=== PATIENT | male | born 1940 | race Caucasian/White ===

== ENCOUNTER 2024-07-18 10:47 | Outpatient (CLI) | payer MEDICARE, OTHER, SELFPAY ==
--- NOTE | ~2024-07-18 | XR_ITS ---
Supine and upright views of the abdomen Clinical history: Kidney stone Findings: Bowel gas pattern is nonspecific. No evidence for obstruction or free air. Multiple right-s ided kidney stones are present, largest measuring 1 cm in diameter. There are multiple left-sided kid herb stones, largest measuring 5 mm.. Osseous structures are intact. Impression: Multiple bilateral renal stones, as detailed above. Reviewed, dictated and finalized at location . Impression: Multiple bilateral renal stones, as detailed above.
--- OUTSIDE RECORDS SUMMARY | 2024-07-18 12:35 | XMS_ITS | Referral Summary ---
Author Organization [facility] [address] [place] [address] Care Team Providers Care [facility] Associate Professor Name Role Phone Gena Powers Primary Care Provider + Allergies No known active allergies Medications butalbital-acet aminophen-caffe ine (ESGIC) 50-325-40 mg per tablet Take 1-2 tabs every 8 hours PRN for headache 0 Active azelastine (ASTELIN) 137 mcg (0.1 %) nasal spray Administer 1 spray into affected nostril(s) 2 (two) times a day 9 Active docosahexaenoic acid-epa 120-180 mg capsule Take by mouth Active fluticasone propionate (FLONASE) 50 mcg/actuation nasal spray 0 Active hydroCHLOROthia zide (HYDRODIURIL) 25 mg tablet 0 Active lisinopriL (PRINIVIL,ZESTR IL) 10 mg tablet 0 Active loratadine (CLARITIN) 10 mg tablet Take 10 mg by mouth daily 9 Active meloxicam (MOBIC) 7.5 mg tablet Take 7.5 mg by mouth daily 0 Active metFORMIN XR (GLUCOPHAGE XR) 500 mg 24 hr tablet 0 Active potassium chloride ER (potassium chloride ER) 10 mEq CR tablet Take 10 mEq by mouth daily 0 Active simvastatin (ZOCOR) 20 mg tablet 0 Active tiZANidine (ZANAFLEX) 2 mg tablet 0 Active traMADoL (ULTRAM) 50 mg tablet TAKE ONE TO TWO TABLETS EVERY SIX HOURS NEEDED FOR PAIN 0 Active ipratropium (ATROVENT) 42 mcg (0.06 %) nasal sprayIndication s:Post-nasal drip Administer 2 sprays into each nostril 4 (four) times a day 15 mL 3 0 Active Active Problems Problem Noted Date Diagnosed Date Sensorineural hearing loss (SNHL) of both ears 0 08/11/2020 Post-nasal drip 02/09/2020 Deviated nasal septum 12/19/2019 Hypertrophy of both inferior nasal turbinates Nasal valve 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/19/2019 Social History Tobacco Use Types Packs/Day Years Used Date Smoking Tobacco: Former Smokeless Tobacco: Never Personal Safety Answer Date Recorded Getting School Help Needed Not on file 07/04 Sex and Gender Information Value Date Recorded Sex Assigned at Not on file Legal Sex Male 3:45 PM [employer] Gender Identity Not on file Sexual Orientation Not on file Last Filed Vital Signs Vital Sign Reading Time Taken Comments Blood Pressure 138/82 01/04/2020 7:52 AM CDT Pulse 69 01/04/2020 7:52 AM CDT Temperature 36.9 C (98.4 F) 07/11/2020 3:02 PM CDT Respiratory Rate - - Oxygen Saturation 98% 01/04/2020 7:52 AM CDT Inhaled Oxygen Concentration - - Weight 81.6 kg (180 lb) 08/09/2020 9:11 AM CDT Height 182.9 cm (6') 08/09/2020 9:11 AM CDT Body Mass Index 24.41 08/09/2020 9:11 AM CDT Plan of Treatment Not on file Insurance MEDICARE FOR LIFE MEDICARE FOR LIFE Care Teams [facility] Associate Professor Relationship Specialty Start Date End Date Gena Powers PA [address] [place] [id number] PCP - General Nurse Practitioner 12/12/19
--- OUTSIDE RECORDS SUMMARY | 2024-07-18 12:35 | XMS_ITS | Clinical Summary ---
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 Active Multiple Vitamins-Minerals (ICAPS AREDS 2 OR) Take 1 tablet by mouth daily. Active Acetaminophen (TYLENOL ARTHRITIS PAIN OR) Take by mouth daily. Active CYSTEAMINE HCL OP Eye drops Ac tive fluticasone propionate (FLONASE) 50 MCG/ACT nasal sprayIndications: Seasonal allergic rhinitis, unspecified trigger 2 sprays by Each Nostril route daily. 48 g 6 4 Active hydroCHLOROthiazi de (HYDRODIURIL) 25 MG tabletIndications :Essential hypertension take 1 tablet by mouth daily. 90 tablet 2 4 Active calcium-vitamin D (OSCAL) 250-3.125 MG-MCG tablet Take 1 tablet by mouth daily. Active Cholecalciferol (VITAMIN D-3 OR) Act sarahi lisinopril (PRINIVIL) 10 MG tabletIndications :Essential hypertension Take 1 tablet (10 mg total) by mouth daily. 90 tablet 1 4 Active simvastatin (ZOCOR) 20 MG tabletIndications :Hypercholesterol emia Take 1 tablet (20 mg total) by mouth nightly at bedtime. at bedtime 90 tablet 3 4 Active metFORMIN ER (GLUCOPHAGE-XR) 500 MG 24 hr tabletIndications :Type 2 diabetes mellitus with hyperglycemia, without long-term current use of insulin ([facility]/HCC HHS/HCC) TAKE 2 TABLETS IN THE MORNING AND ONE TABLET IN THE PM. 270 tablet 12/23/202 4 Active butalbital-acetam inophen-caffeine (ESGIC) 50-325-40 MG tabletIndications :Nonintractable episodic headache, unspecified headache type Take 1-2 tabs every 8 hours PRN for headache 60 tablet 5 Active tamsulosin (FLOMAX) 0.4 MG CapIndications:Bi lateral renal stones Take 1 capsule (0.4 mg total) by mouth daily. 90 capsule 1 5 Active Active Problems Problem Noted Date Diagnosed Date S/P subdural hematoma evacuation 05/10/2024 Subdural hematoma 02/12/2024 Chronic tension-type headache, intractable 01/03 Nephrolithiasis 01/17/2021 Sensorineural hearing loss (SNHL) of both ears 0 08/11/2020 Foreign body in ear 07/11/2020 Post-nasal drip 02/09/2020 Nasal valve collapse 12/19/2019 Hypertrophy of both inferior nasal turbinates Deviated nasal septum 12/19/2019 Microhematuria 01/20/2019 Osteopenia of multiple sites 11/16/2018 Hammer toe 11/12/2017 Peripheral neuropathy 05/07/2017 Allergic rhinitis 11/27/2014 Shoulder pain 12/27/2013 Actinic keratosis 12/27/2013 Headache 10/06/2012 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) Resolved Problems Problem Noted Date Diagnosed Date Resolved Date Chronic kidney disease, stage III (moderate) 2 11/20/2022 Encounter for prostate cancer screening 05/11/2015 12/30/2019 Encounter for preventive health examination 01/27/2012 12/30/2019 Encounters Date Type Department Care Team Description 07/04/2024 Telephone [facility] [address] [address] Luis Franco APNP Advice 07/01/2024 Telephone [facility] Family [facility] Medicine [address] [address] Luis Franco APNP Information 07/01/2024 Telephone [facility] - [address], [address] [place] [address] Maciej Kilgore MD Question 06/29/2024 Telephone [facility] Family & Internal [address] [address] Luis Franco APNP Lab Results 06/27/2024 7:04 AM CDT - 06/27/2024 11:59 PM CDT Hospital Encounter [facility] [address] [place] [address] Luis Franco APNP Discharge Disposition: Home or Self Care (Routine Discharge) 06/27/2024 Travel 06/23/2024 11:00 AM CONSUMER ATTORNEY Office Visit [facility] Family Internal [address] [address] Luis Franco APNP Lab Order (Pt is requesting orders for routine labwork.); Flank Pain (Pt c/o mild right flank pain. Pt requesting new referral for Urology given his hx of kidney stones.) 06/23/2024 Travel 06/17/2024 10:40 AM CONSUMER ATTORNEY [facility] - [address], [address] [place] [address] Maciej Kilgore MD Post Operative (Post-op) 06/17/2024 9:49 AM CONSUMER ATTORNEY - 06/17/2024 11:59 PM CONSUMER ATTORNEY Hospital Encounter [facility] [address] [place] [address] Maciej Kilgore MD Discharge Disposition: Home or Self Care (Routine Discharge) 06/16/2024 Travel 05/19/2024 3:00 PM CONSUMER ATTORNEY [facility] [address], [address] [place] [address] Maciej Kilgore MD Post Operative 05/19/2024 Travel 05/17/2024 11:20 AM CONSUMER ATTORNEY Office Visit [facility] Internal [address] [address] Luis Franco APNP TCM 05/17/2024 Hospital Follow-up Call [facility] [place] [address] Gisella Reed LPN Follow Up Call (BEAU 05/10-05/12/24) 05/17/2024 Travel 05/16/2024 Telephone [facility] Internal [address] [address] Luis Franco APNP Lab Results 05/16/2024 [facility]phone [facility] [address] [facility] [address], [address] [place] [address] Maciej Kilgore MD Reschedule 05/10/2024 2:30 PM CONSUMER ATTORNEY - 05/10/2024 4:36 PM CONSUMER ATTORNEY Surgery [facility] [address] Maciej Kilgore MD RIGHT JUSTICE HOLES FOR EVACUATION OF SUBDURAL HEMATOMA 05/10/2024 1:50 PM CONSUMER ATTORNEY Anesthesia Event [facility] [place] [address] Andrea Huddleston MD Jarvis, Brittany L, SHIPYARD PAINTER APPRENTICE 05/10/2024 11:25 AM CONSUMER ATTORNEY - 05/12/2024 11:59 AM CONSUMER ATTORNEY Hospital En[facility] 3rd [facility] [place] [address] Maciej Kilgore MD Discharge Disposition: Home or Self Care (Routine Discharge) 05/10/2024 Travel 05/09/2024 Telephone [facility] - [address], [address] [place] [address] Maciej Kilgore MD Surgery Questions 05/02/2024 Telephone [facility] Internal [address] [address] Luis Franco APNP Medication Request 04/27/2024 2:58 PM CONSUMER ATTORNEY - 04/27/2024 4:12 PM CONSUMER ATTORNEY Hospital Encounter [facility] [place] [address] Maciej Kilgore MD Discharge Disposition: Home or Self Care (Routine Discharge) 04/27/2024 Travel 04/26/2024 2:20 PM CONSUMER ATTORNEY Office Visit [address] [address] Luis Franco APNP Surgical Clearance 04/26/2024 Travel 04/19/2024 Telephone [facility] - [address], [address] [place] [address] Maciej Kilgore MD Pre-op Surgery/Cosmetic (Education/instruc tions) from Last 3 Months Immunizations Name Administration Dates Next Due Fluzone High Dose (IIV, triv alent, 0.5mL) 02/17/2024 Fluzone High Dose - >Age 65 (Prefilled Syringe) 01/09/2023,01/11/2022,02/19/2019,2016,03/04/2016,01/30/2015 Influenza (Generic) 12/22/2011,04/20/2007,2001 Influenza Adult (Generic) 01/19/2020,06/2019,02/19/2019,2016,03/04/2016,01/30/2015,01/22/2015,1 PFIZER COVID-19 (12+) MRNA, LNP-S, PF, SMOOTH-SUCROSE, 30 MCG/0.3 ML (COMIRNATY) 02/17/2024 PFIZER COVID-19 (ORIGINAL FORMULATION, PURPLE CAP) mRNA, LNP-S, PF, 30 MCG/0.3 ML DOSE 06/30/2020,06/09/2020 Pneumococcal (Generic) 04/20/2004 Pneumococcal (Pneumovax 23) 06/20/2013 Pneumococcal (Prevnar 13) 06/01/2019 Shingrix 11/12/2018,09/10/2017 Tdap (Adacel) 01/03/2022 Zoster (Zostavax) 12684 Unt/0.65Ml 06/20/2013 Family History Medical History Relation Comments Cancer Father Prostate Cancer Father Stroke Father Cancer Maternal Grandmother Other Maternal Grandmother Heart Disease Mother Parkinson's Disease Sister Relation Status Comments Father (Age 90) Maternal Grandmother Mother (Age 86) Sister Son overdose Social History Tobacco Use Types Packs/Day Years Used Date Smoking Tobacco: Former Cigarettes Q uit: 11/29/1969 Smokeless Tobacco: Never Tobacco Cessation:Counseling Given: Yes Comments:only smoke for a couple years socially Alcohol Use Standard Drinks/Week Comments Not Currently 0 (1 standard drink = 0.6 oz pur e alcohol) rarely B1300 Health Literacy Answer Date Recor ded How often do you need to hav e someone help you when you read instructions, pamphlets, or other written material from your doctor or pharmacy? Sometimes 05/10/2024 [facility] Utilities Answer Date Recorded In the past 12 months has th e Gyft, gas, oil, or water Geelbe threatened to shut off services in your home? No 05/10/2024 Humiliation, Afraid, Rape, and Kick questionnair e Answer Date Recorded Within the last year, have y ou been afraid of your partner or ex-partner? No 05/10/2024 Within the last year, have y ou been humiliated or emotionally abused in other ways by your partner or ex-partner? No Within the last year, have y ou been kicked, hit, slapped, or otherwise physically hurt by your partner or ex-partner? No 05/10/2024 Within the last year, have y ou been raped or forced to have any kind of sexual activity by your partner or ex-partner? No 05/10/2024 AUDIT-C Answer Date Recorded Frequency of Alcohol Consumption Never 03/24/2018 Average Number of Drinks Not on file 018 Frequency of Binge Drinking Not on file 08/2017 Overall Financial Resource Strain (CARDIA) Answe r Date Recorded How hard is it for you to pa y for the very basics like food, housing, medical care, and heating? Not hard at all 05/10/2024 PHQ-2 Answer Date Recorded Patient Health Questionnaire-2 Score 0 11/05/2023 [facility] - Occupational Stress Questionnaire Answer Date Recorded Do you feel stress - tense, restless, nervous, or anxious, or unable to sleep at night because your mind is troubled all the time - these days? Not at all 05/10/2024 Exercise Vital Sign Answer Date Recorde d On average, how many days pe r week do you engage in moderate to strenuous exercise (like a brisk walk)? 0 days 05/10/2024 On average, how many minutes do you engage in exercise at this level? 0 min 05/10/2024 Hunger Vital Sign Answer Date Recorded Within the past 12 months, y ou worried that your food would run out before you got the money to buy more. Never true 05/10/19 25 Within the past 12 months, t he food you bought just didn't last and you didn't have money to get more. Never true 05/10/2024 PRAPARE - Transportation Answer Date Re corded In the past 12 months, has l ack of transportation kept you from medical appointments or from getting medications? No 04/21 In the past 12 months, has l ack of transportation kept you from meetings, work, or from getting things needed for daily living? No 05/10/2024 Housing Stability Vital Sign Answer Brady e Recorded In the last 12 months, was t here a time when you were not able to pay the mortgage or rent on time? No 05/10/2024 In the past 12 months, how m any times have you moved where you were living? 0 05/10/2024 At [facility] the [facility] were you homeless or living in a [facility] (including now)? No 05/10/2024 Sex and Gender Information Value Date Recorded Sex Assigned at Male 05/10/2024 11:24 AM CONSUMER ATTORNEY Legal Sex Male 5:39 PM CDT Gender Identity Not on file Sexual Orientation Not on file Last Filed Vital Signs Vital Sign Reading Time Taken Comments Blood Pressure 106/68 06/23/2024 11:12 AM CONSUMER ATTORNEY Pulse 79 06/23/2024 11:12 AM CONSUMER ATTORNEY Temperature 37 C (98.6 F) 06/23/2024 11:12 AM CONSUMER ATTORNEY Respiratory Rate 16 06/23/2024 11:12 AM CONSUMER ATTORNEY Oxygen Saturation 97% 06/23/2024 11:12 AM CONSUMER ATTORNEY Inhaled Oxygen Concentration - - Weight 77.4 kg (170 lb 9.6 oz) 06/23/2024 11:12 AM CONSUMER ATTORNEY Height 182.9 cm (6') 06/23/2024 11:12 AM CONSUMER ATTORNEY Body Mass Index 23.14 06/23/2024 11:12 AM CONSUMER ATTORNEY Plan of Treatment Upcoming Encounters Date Type Department Care Team (Late st Contact Info) Description 08/03/2024 9:20 AM CDT Office Visit [facility] Family & Internal Medicine - [place] [address] [place] [phone] Luis Franco, DESIREE [address] [place] [address] Health Maintenance Due Date Last Done Comments Kidney Health Evaluation 1940 Annual Medicare Wellness Visit 06/29/2007 RSV Immunization or 60+ Years (1 - 1-dose 75+ series) 2017 PHQ-2 (Physician [place]) 04/20/2024 11/05/2023 COVID-19 Vaccine ( season) 2024 02/17/2024, 01/09/2023, 01/11/2022, Additional history exists Hemoglobin A1C 10/25/2024 04/27/2024, 01/19, 11/05/2023, Additional history exists Lipid Panel 02/12/2025 02/13/2024, 12/2022, 01/08/2022, Additional history exists Diabetes: Retinopathy Eye Exam 02/21/2026 02/22/2024, 06/29/2023, 07/07/2022, Additional history exists DTaP, Tdap and Td Vaccines (2 - Td or Tdap) 01/04/2032 01/03/2022 Zoster Vaccines Completed 11/12/2018, 08/19, 06/20/2013 Pneumococcal Vaccine: 65+ Years Completed 06/01/2019, 06/20/2013 Meningococcal B Vaccine Aged Out No l onger eligible based on patient's age to complete this topic Meningococcal Vaccine Aged Out No roya tessy eligible based on patient's age to complete this topic RSV Immunizations Under 20 Months Aged Out No longer eligible based on patient's age to complete this topic Goals Goal Patient Goal Type Associated Problems Recent Progress Patient-Stated? 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 programmer analyst Devices Implanted Type Area Fishing Lure Assembler Device Identifier Shelf Expiration Date Model / Serial / Lot Stent Uret 6fr 30cm Pigtl Crv Taper Tip Bldr Mrk - [id number] Implanted:Qty : 1 on 02/12/2021 by Isaac Chahal MD at [facility] Stent Right: Ureter iRates JULIO [id number] 08/04/2023 [id number] / / [id number] K-Wire Implanted:Qty : 1 on 11/09/2020 by Timi Roblero DPM at [facility] Toe Left: Toe [employer] [id number] 07/20/2024 / / [id number] 1 K Wire 0.045 Implanted:Qty : 1 on 07/25/2022 by Timi Roblero DPM at [facility] Wire Right: Toe [employer] [id number] 10/07/2025 / / [id number] 2 Description:RIGHT BIG TOE Explanted Type Area Fishing Lure Assembler Device Identifier Shelf Expiration Date Model / Serial / Lot Stent Bard [place]ridge 6fr X 28cm - [id number] Implanted:Qty : 1 on 12/04/2020 by Isaac Chahal MD at [facility] Explanted:Qty : 1 on 12/13/2020 at [facility] Stent Left: Ureter [employer] [id number] 10/31/2024 [id number] / / [id number] Procedures Procedure Name Priority Date/Time Associated Diagnosis Comments CT ABD+PEL WO CON MARCIO 06/27/2024 7:2 3 AM CDT Flank pain Other microscopic hematuria URINALYSIS AUTO DIP Routine 06/23/[address] HEAD WO CON Routine 06/17/2024 9:59 AM CONSUMER ATTORNEY S/P evacuation of subdural hematoma POCT GLUCOSE - BARBOSA DOCKED DEVICE Routine 05/12/2024 6:00 AM CONSUMER ATTORNEY POCT GLUCOSE - BARBOSA DOCKED DEVICE Routine 05/11/2024 7:48 PM CONSUMER ATTORNEY POCT GLUCOSE - BARBOSA DOCKED DEVICE Routine 05/11/2024 4:23 PM CONSUMER ATTORNEY POCT GLUCOSE - BARBOSA DOCKED DEVICE Routine 05/11/2024 10:45 AM CONSUMER ATTORNEY POCT GLUCOSE - BARBOSA DOCKED DEVICE Routine 05/11/2024 6:05 AM CONSUMER ATTORNEY POCT GLUCOSE - BARBOSA DOCKED DEVICE Routine 05/10/2024 7:27 PM CONSUMER ATTORNEY POCT GLUCOSE - BARBOSA DOCKED DEVICE Routine 05/10/2024 6:[address] HEAD WO CON Today 05/10/2024 5:04 PM CONSUMER ATTORNEY POCT GLUCOSE - BARBOSA DOCKED DEVICE Routine 05/10/2024 3:14 PM CONSUMER ATTORNEY JUSTICE HOLE SUBDURAL HEMATOMA EVACUATION 05/10/2024 1:49 PM CONSUMER ATTORNEY SUBDURAL HEMATOMA S06.5XAA Case Notes SCHED BY FAX 04/18/2024 [facility] PRETEST 04/27 @ 4704 POCT GLUCOSE - BARBOSA DOCKED DEVICE Routine 05/10/2024 12:43 PM CONSUMER ATTORNEY TYPE & SCREEN Routine 04/27/2024 3:09 PM CONSUMER ATTORNEY Subdural hematoma (CMS/HCC) HEMOGLOBIN, GLYCOSYLATED Routine 04/27/2024 3:09 PM CONSUMER ATTORNEY Type 2 diabetes mellitus with other circulatory complication, without long-term current use of insulin (CMS/HCC HHS/HCC) PARTIAL THROMBOPLASTIN TIME,PTT Routine 04/27/2024 3:09 PM CONSUMER ATTORNEY Subdural hematoma (CMS/HCC) PROTHROMBIN TIME, VENOUS Routine 04/27/2024 3:09 PM CONSUMER ATTORNEY Subdural hematoma (CMS/HCC) NICOTINE SCREEN URINE Routine 04/27/2024 3:09 PM CONSUMER ATTORNEY Subdural hematoma (CMS/HCC) HC URINALYSIS AUTO W/O MICRO Routine 04/27/2024 3:09 PM CONSUMER ATTORNEY Subdural hematoma (CMS/HCC) BASIC METABOLIC PANEL Routine 04/27/2024 3:09 PM CONSUMER ATTORNEY Subdural hematoma (CMS/HCC) CBC W/DIFF AUTOMATED Routine 04/27/2024 3:09 PM CONSUMER ATTORNEY Subdural hematoma (CMS/HCC) MRSA SCREENING Routine 04/27/2024 3:08 PM CONSUMER ATTORNEY Subdural hematoma (CMS/HCC) URINE BACTERIA CULTURE Routine 3:08 PM CONSUMER ATTORNEY Subdural hematoma (CMS/HCC) ELECTROCARDIOGRAM (NON MIDMARK ACQUIRED) Routine 04/26/2024 3:12 PM CONSUMER ATTORNEY Preop examination DIABETIC RETINOPATHY EXAM (NEGATIVE)(SCAN ORDER) Routine 02/22/2024 LIPID PANEL Routine 02/13/2024 2:58 AM CDT from Last 3 Months or Most Recently Relevant to Health Maintenance Results * CT ABD+PEL WO CON (06/27/2024 7:23 AM CDT) Anatomical Region Laterality Modality Abdomen Computed Tomogra phy 06/27/2024 8:50 AM CDT Impressions 06/27/2024 9:05 AM CDT =====IMPRESSION:===== 1. Multiple nonobstructing bilateral renal calculi. 2. No hydronephrosis or obstructing calculus. 3. Moderate retained stool in the colon. 4. Other incidental and chronic findings as described. Ordered By: LUIS FRANCO Interpreted By: Rigoberto Colon MD, 06/27/2024 8:50 AM Narrative 06/27/2024 9:05 [place] [address] EXAMINATION: CT Abdomen and Pelvis without contrast EXAM DATE/TIME: 06/27/2024 7:11 AM REASON FOR EXAM: right flank pain, history of renal stone COMPARISON: 02/13/2021 TECHNIQUE: Computed tomography of the abdomen and pelvis was obtained without administration of intravenous contrast according to routine protocol. Automated exposure control was utilized for dose reduction. FINDINGS: Abdomen findings: Multiple bilateral nonobstructing renal calculi. At least 5 on the right side with largest measuring 11 mm in the inferior pole. At least 7 on the left side with largest measuring 9 mm in the inferior pole. No hydronephrosis. Multiple chronic bilateral renal cortical infarcts. Small right renal lesion is chronic and stable compatible with benign etiology. Tiny gallstones dependently. Gallbladder is otherwise unremarkable. The dome of the liver is partially excluded from the [id number]. Liver is otherwise unremarkable. The spleen, pancreas, adrenal glands and IVC are unremarkable. Atherosclerotic mildly tortuous aorta. Additional scattered vascular calcifications elsewhere. Small periampullary duodenal diverticulum. Moderate retained stool throughout the colon. No acute inflammatory changes. Small bowel and appendix are unremarkable. No suspicious adenopathy. Pelvis: Prostate is somewhat enlarged measuring 5.5 cm transversely. Bladder, seminal vesicles and rectum are unremarkable. Multiple pelvic phleboliths. No suspicious adenopathy. Coronary artery and cardiac valve calcifications, partially visualized. Minimal pericardial effusion. Minimal atelectasis in the visualized lung bases. Diffuse degenerative changes. Chronic ankylosis of the SI joints. Chronic benign sclerotic focus of the L5 vertebral body. No acute fracture or destructive bone lesion. Procedure Note [place], Rigoberto Khalil MD - 06/27/2024 [facility] [address] [place] [address] EXAMINATION: CT Abdomen and Pelvis without contrast EXAM DATE/TIME: 06/27/2024 7:11 AM REASON FOR EXAM: right flank pain, history of renal stone COMPARISON: 02/13/2021 TECHNIQUE: Computed tomography of the abdomen and pelvis was obtainedwithout administration of intravenous contrast according to routineprotocol. Automated exposure control was utilized for dose reduction. FINDINGS: Abdomen findings: Multiple bilateral nonobstructing renal calculi. Atleast 5 on the right side with largest measuring 11 mm in the inferiorpole. At least 7 on the left side with largest measuring 9 mm in theinferior pole. No hydronephrosis. Multiple chronic bilateral renalcortical infarcts. Small right renal lesion is chronic and stablecompatible with benign etiology. Tiny gallstones dependently. Gallbladderis otherwise unremarkable. The dome of the liver is partially excludedfrom the [id number]. Liver is otherwise unremarkable. The spleen,pancreas, adrenal glands and IVC are unremarkable. Atherosclerotic mildlytortuous aorta. Additional scattered vascular calcifications elsewhere.Small periampullary duodenal diverticulum. Moderate retained stoolthroughout the colon. No acute inflammatory changes. Small bowel andappendix are unremarkable. No suspicious adenopathy. Pelvis: Prostate is somewhat enlarged measuring 5.5 cm transversely.Bladder, seminal vesicles and rectum are unremarkable. Multiple pelvicphleboliths. No suspicious adenopathy. Coronary artery and cardiac valve calcifications, partially visualized.Minimal pericardial effusion. Minimal atelectasis in the visualized lungbases. Diffuse degenerative changes. Chronic ankylosis of the SI joints.Chronic benign sclerotic focus of the L5 vertebral body. No acute fractureor destructive bone lesion. =====IMPRESSION:===== 1. Multiple nonobstructing bilateral renal calculi. 2. No hydronephrosis or obstructing calculus. 3. Moderate retained stool in the colon. 4. Other incidental and chronic findings as described. Ordered By: LUIS FRANCO Interpreted By: Rigoberto Colon MD, 06/27/2024 8:50 AM Luis Franco [facility] Final Resul t * (ABNORMAL) URINALYSIS AUTO DIP (06/23/2024) COLOR (U) YELLOW YELLOW [facility] TRANSPARENCY CLEAR CLEAR [facility] GLUCOSE (U) 500 mg/dl(A) NEGATIVE MG/DL [facility] BILIRUBIN (U) NEGATIVE NEGATIVE [facility] MG/DL (U) NEGATIVE NEGATIVE MG/DL [facility] SPECIFIC GRAVITY (U) 1.015 1.001 - 1.035 [facility] BLOOD (U) MODERATE (2+ Hemolyzed, About 50 rbc/uL)(A) NEGATIVE [facility] U PH 5.5 5.0 - 9.0 [facility] PROTEIN (U) NEGATIVE NEGATIVE mg/dL [facility] UROBILINOGEN 0.2 0.2 - 1.0 EU/dL = mg/dL [facility] NITRITES NEGATIVE NEGATIVE MG/DL [facility] LEUKOCYTES (U) NEGATIVE NEGATIVE [facility] URINE SPECIMEN OBTAINED BY CLEAN CATCH PROCEDURE / Unknown 06/23/2024 Luis RAMÍREZ URINE ORDERABLES Final Resu lt [facility] [address] [place] [address], [place] * CT HEAD WO CON (06/17/2024 9:59 AM CONSUMER ATTORNEY) Only the most recent of2 resultswithin the time period is included. Anatomical Region Laterality Modality Head Computed Tomogra phy 06/19/2024 2:31 PM CONSUMER ATTORNEY Impressions 06/19/2024 2:35 PM CONSUMER ATTORNEY IMPRESSION: 1. Small late subacute upper right subdural hematoma measuring up to 0.5 cm in width along the right frontal convexity, decreased in size compared to the prior CT. No interval hemorrhage. 2. 0.2 cm of leftward midline shift shift, unchanged. Referred By: MACIEJ KILGORE Interpreted By: Raimundo De Anda MD, 06/19/2024 2:31 PM Narrative 06/19/2024 2:35 PM CONSUMER ATTORNEY [address] [address] EXAMINATION:Head CT without contrast 06/17/2024 INDICATION:Follow-up subdural hematoma TECHNIQUE: Axial CT images of the head were acquired with intravenous contrast. Sagittal coronal reformats were constructed. Radiation dose reduction techniques were used. COMPARISON: Head CT 04/2124 FINDINGS:There is been interval removal the previously noted right subdural surgical drain. 2 justice holes are seen within the upper right frontal parietal region. No acute osseous abnormality. Paranasal sinuses and mastoid air cells are clear. The orbits and globes are unremarkable. Bilateral lens replacement noted. There is a small intermediate to decreased density extra-axial fluid collection along the upper right cerebral hemisphere measuring up to 0.5 cm in width, decreased in size compared to the prior CT. No interval hemorrhage. There is a 0.2 cm of leftward midline shift of the septum pellucidum, unchanged. No sulcal effacement or loss of elizondo/white matter differentiation. Procedure Note Raimundo De Anda MD - 06/19/[address] [address] EXAMINATION:Head CT without contrast 06/17/2024 INDICATION:Follow-up subdural hematoma TECHNIQUE: Axial CT images of the head were acquired with intravenouscontrast. Sagittal coronal reformats were constructed. Radiation dosereduction techniques were used. COMPARISON: Head CT 04/2124 FINDINGS:There is been interval removal the previously noted rightsubdural surgical drain. 2 justice holes are seen within the upper rightfrontal parietal region. No acute osseous abnormality. Paranasal sinusesand mastoid air cells are clear. The orbits and globes are unremarkable.Bilateral lens replacement noted. There is a small intermediate to decreased density extra-axial fluidcollection along the upper right cerebral hemisphere measuring up to 0.5cm in width, decreased in size compared to the prior CT. No intervalhemorrhage. There is a 0.2 cm of leftward midline shift of the septumpellucidum, unchanged. No sulcal effacement or loss of elizondo/white matter differentiation. IMPRESSION: 1. Small late subacute upper right subdural hematoma measuring up to 0.5cm in width along the right frontal convexity, decreased in size comparedto the prior CT. No interval hemorrhage. 2. 0.2 cm of leftward midline shift shift, unchanged. Referred By: MACIEJ KILGORE Interpreted By: Raimundo De Anda MD, 06/19/2024 2:31 PM Maciej Kilgore MD CT Final Resul t * (ABNORMAL) POCT glucose (05/12/2024 6:00 AM CONSUMER ATTORNEY) Only the most recent of9 resultswithin the time period is included. GLUCOSE POC 177(H) 70 - 99 mg/dL 05/12/2024 6:08 AM CONSUMER ATTORNEY [facility] 05/12/2024 6:00 AM CONSUMER ATTORNEY Maciej Kilgore MD POCT ORDERABLES - DEVICE Fi nal Result [facility] [address] [place] [address], [place] [phone] * NICOTINE SCREEN URINE (04/27/2024 3:09 PM CONSUMER ATTORNEY) NICOTINE (U) <2 ng/mL 05/01/2024 1:16 AM CONSUMER ATTORNEY [facility] COTININE (U) 6 ng/mL 05/01/2024 1:16 AM CONSUMER ATTORNEY [employer] [facility] Comment: Reference Range: Nicotine, Urine Smokers: 200-700 ng/mL Nonsmokers: < or = 17 ng/mL Cotinine, Urine Smokers: 300-1300 ng/mL Nonsmokers: < or = 20 ng/mL Individuals exposed to second-hand or passive tobacco smoke may demonstrate concentrations of nicotine and cotinine greater than those indicated for non-smokers. This test was developed and its analytical performance characteristics have been determined by [facility] [place], [place]. It has not been cleared or approved by the U.S. Food and Drug Administration. This assay has been validated pursuant to the CLIA regulations and is used for clinical purposes. Test Performed by [employer], [facility], [address] [place], [place] Sven Callahan M.D., Ph.D., Director of Laboratories , CLIA [id number] URINE SPECIMEN / Unknown 04/27/2024 3:09 PM CONSUMER ATTORNEY Maciej Kilgore MD URINE ORDERABLES Final Resu lt [facility] [address] [place], [place] , * (ABNORMAL) HEMOGLOBIN, GLYCOSYLATED (04/27/2024 3:09 PM CONSUMER ATTORNEY) HGB A1C 8.3(H) <5.7 % 04/27/2024 6:23 PM CONSUMER ATTORNEY [facility] Comment: ADA GUIDELINES 2010 5.7 TO 6.4% INCREASED RISK OF DIABETES > OR = 6.5% CONSISTENT WITH DIABETES ESTIMATED AVG GLUCOSE 192 mg/dL 04/27/2024 6:23 PM CONSUMER ATTORNEY [facility] 04/27/2024 3:09 PM CONSUMER ATTORNEY Luis RAMÍREZ LABORATORY Final Resul t Performing Organization Address [facility] Co de Phone Number [facility] [address] [place] [address], [place] [phone] * TYPE & SCREEN (04/27/2024 3:09 PM CONSUMER ATTORNEY) ABO/RH B POSITIVE 04/27/2024 6:21 PM CONSUMER ATTORNEY [facility] ANTIBODY SCREEN NEGATIVE 04/27/2024 6:21 PM CONSUMER ATTORNEY [facility] SAMPLE EXPIRATION 04/30/2024,2 359 04/27/2024 6:21 PM CONSUMER ATTORNEY [facility] 04/27/2024 3:09 PM CONSUMER ATTORNEY Maciej Kilgore MD BLOOD BANK TEST ORDERABLES Final Result Performing Organization Address [facility] de Phone Number [facility] [address] [place] [address], [place] [phone] * (ABNORMAL) URINALYSIS (04/27/2024 3:09 PM CONSUMER ATTORNEY) SPECIMEN TYPE URINE CLEAN CATCH 04/27/2024 3:06 PM CONSUMER ATTORNEY [facility] COLOR (U) YELLOW 04/27/2024 4:16 PM CONSUMER ATTORNEY [facility] TRANSPARENCY CLEAR 04/27/2024 4:16 PM CONSUMER ATTORNEY [facility] SPECIFIC GRAVITY (U) 1.019 1.001 - 1.030 04/27/2024 4:16 PM CONSUMER ATTORNEY [facility] U PH 6.0 5.0 - 9.0 04/27/2024 4:16 PM [facility] LEUKOCYTES (U) 25(A) NEGATIVE 04/27/2024 4:16 PM [facility] NITRITES NEGATIVE NEGATIVE 04/27/2024 4:16 PM [facility] PROTEIN RANDOM (U) NEGATIVE <30 MG/DL 04/27/2024 4:16 PM [facility] GLUCOSE (U) 500(A) NORMAL MG/DL 04/27/2024 4:16 PM [facility] KETONES MG/DL (U) NEGATIVE NEGATIVE MG/DL 04/27/2024 4:16 PM [facility] UROBILINOGEN NORMAL NORMAL MG/DL 04/27/2024 4:16 PM [facility] BILIRUBIN (U) NEGATIVE NEGATIVE MG/DL 04/27/2024 4:16 PM [facility] BLOOD (U) NEGATIVE NEGATIVE 04/27/2024 4:16 PM [facility] MUCUS RARE /LPF 04/27/2024 4:16 PM [facility] WBC/HPF 1 <6 /HPF 04/27/2024 4:16 PM [facility] RBC/HPF 10(H) <6 /HPF 04/27/2024 4:16 PM [facility] SPERM (U) SPERMATOZOA PRESENT 04/27/2024 4:16 PM [facility] URINE SPECIMEN OBTAINED BY CLEAN CATCH PROCEDURE / Unknown 04/27/2024 3:09 PM CONSUMER ATTORNEY us Maciej Kilgore MD URINE ORDERABLES Final Resu lt [facility] [address] [place] [address], * PTT, PARTIAL THROMBOPLASTIN TIME (04/27/2024 3:09 PM CONSUMER ATTORNEY) Pathologist [facility] PTT 29.4 25.1 - 36.5 SEC 04/27/2024 3:56 PM CONSUMER ATTORNEY [facility] 04/27/2024 3:09 PM CONSUMER ATTORNEY us Maciej Kilgore MD LABORATORY Final Resul t [facility] [address] [place] [address], * PROTIME/INR, VENOUS (04/27/2024 3:09 PM CONSUMER ATTORNEY) Pathologist [facility] PROTIME 10.4 10.2 - 12.9 SEC 04/27/2024 3:56 PM CONSUMER ATTORNEY [facility] INR 0.9 04/27/2024 3:56 PM CONSUMER ATTORNEY [facility] Comment: Recommended INR Therapeutic Goals: 2.0-3.0 Routine Therapy 2.5-3.5 Mechanical Prosthetic Valves (High Risk) 04/27/2024 3:09 PM CONSUMER ATTORNEY us Maciej Kilgore MD LABORATORY Final Resul t [facility] [address] [place] [address], * (ABNORMAL) BASIC METABOLIC PANEL (04/27/2024 3:09 PM CONSUMER ATTORNEY) GLUCOSE 161(H) 70 - 99 MG/DL 04/27/2024 3:51 PM CONSUMER ATTORNEY [facility] BUN 27(H) 7 - 18 MG/DL 04/27/2024 3:51 PM [facility] CREATININE S/P/B 1.18 0.7 - 1.3 MG/DL 04/27/2024 3:51 PM [facility] SODIUM S/P/B 134(L) 136 - 145 MMOL/L 04/27/2024 3:51 PM [facility] POTASSIUM S/P/B 3.7 3.5 - 5.1 MMOL/L 04/27/2024 3:51 PM CONSUMER ATTORNEY [facility] CHLORIDE S/P/B 103 97 - 115 MMOL/L 04/27/2024 3:51 PM [facility] CO2 27.6 21 - 32 MMOL/L 04/27/2024 3:51 PM [facility] CALCIUM S/P/B 9.4 8.5 - 10.1 MG/DL 04/27/2024 3:51 PM [facility] ANION GAP 3.4 2 - 10 MMOL/L 04/27/2024 3:51 PM [facility] BUN CREATININE RATIO 22.9 6 - 26 04/27/2024 3:51 PM [facility] GFR ESTIMATE 62(L) >90 ML/MIN/1.7 3 M2 04/27/2024 3:51 PM [facility] Comment: NOTE: eGFR is not calculated for patients <18 years of age or gender unknown. This is an estimated GFR calculation using the new CKD EPI creatinine equation without race and so does not require a correction factor for race. This estimated GFR should not be used for calculating drug doses. 04/27/2024 3:09 PM CONSUMER ATTORNEY us Maciej Kilgore MD LABORATORY Final Resul t [facility] [address] [place] [address], [place] [phone] * (ABNORMAL) CBC W/DIFF AUTOMATED (04/27/2024 3:09 PM CONSUMER ATTORNEY) [facility] WBC 6.56 4.5 - 11.0 x10'3/uL 04/27/2024 3:33 PM [facility] RBC 4.33(L) 4.70 - 6.10 x10'6/uL 04/27/2024 3:33 PM [facility] HGB 13.5(L) 14.0 - 18.0 G/DL 04/27/2024 3:33 PM [facility] HCT 38.8(L) 43.0 - 54.0 % 04/27/2024 3:33 PM [facility] MCV 89.6 80.0 - 94.0 FL 04/27/2024 3:33 PM [facility] MCH 31.2(H) 27.0 - 31.0 PG 04/27/2024 3:33 PM [facility] MCHC 34.8 32.0 - 36.0 G/DL 04/27/2024 3:33 PM [facility] RDW 12.4 11.5 - 14.5 % 04/27/2024 3:33 PM [facility] PLT 181 130 - 400 x10'3/uL 04/27/2024 3:33 PM [facility] MPV 9.3 9.3 - 12.2 FL 04/27/2024 3:33 PM [facility] DIFFERENTIAL TYPE AUTOMATED DIFFERENTIAL 04/27/2024 3:33 PM [facility] NEUTROPHILS % 43.4 % 04/27/2024 3:33 PM [facility] LYMPHOCYTES % 39.8 % 04/27/2024 3:33 PM CONSUMER ATTORNEY [facility] MONOCYTES % 10.5 % 04/27/2024 3:33 PM CONSUMER ATTORNEY [facility] EOSINOPHILS 5.2 % 04/27/2024 3:33 PM CONSUMER ATTORNEY [facility] BASOPHILS 0.8 % 04/27/2024 3:33 PM CONSUMER ATTORNEY [facility] IMMATURE GRANS % 0.3 % 04/27/19 3:33 PM CONSUMER ATTORNEY [facility] ABS. NEUTROPHILS 2.85 1.80 - 7.70 x10'3/uL 04/27/2024 3:33 PM CONSUMER ATTORNEY [facility] ABS. LYMPHOCYTES 2.61 1.00 - 4.80 x10'3/uL 04/27/2024 3:33 PM CONSUMER ATTORNEY [facility] ABS. MONOCYTES 0.69 0.30 - 0.82 x10'3/uL 04/27/2024 3:33 PM CONSUMER ATTORNEY [facility] ABS. EOSINOPHILS 0.34 0.04 - 0.54 x10'3/uL 04/27/2024 3:33 PM CONSUMER ATTORNEY [facility] ABS. BASOPHILS 0.05 0.01 - 0.08 x10'3/uL 04/27/2024 3:33 PM CONSUMER ATTORNEY [facility] ABS. IMMATURE GRANULOCYTES 0.02 0.00 - 0.49 x10'3/uL 04/27/2024 3:33 PM CONSUMER ATTORNEY [facility] 04/27/2024 3:09 PM CONSUMER ATTORNEY us Maciej Kilgore MD LABORATORY Final Resul t [facility] [address] [place] [address], * MRSA SCREENING (04/27/2024 3:08 PM CONSUMER ATTORNEY) SPEC DESCRIPTION NASAL 04/27/2024 3:05 PM CONSUMER ATTORNEY [facility] SPECIAL REQUESTS NO SPECIAL REQUEST 04/27/2024 3:05 PM CONSUMER ATTORNEY [facility] CULTURE RESULT NO METHICILLIN RESISTANT STAPHYLOCOCCUS AUREUS ISOLATED 04/28/2024 12:26 PM CONSUMER ATTORNEY [facility] SPECIMEN FROM INTERNAL NOSE / Unknown 04/27/2024 3:08 PM CONSUMER ATTORNEY 04/27/2024 3:09 PM CONSUMER ATTORNEY us Maciej Kilgore MD MICROBIOLOGY - GENERAL ORDIrma LÓPEZ Final Result Performing Organization Address [facility]/ZIP Co de Phone Number [facility] [address] [place] [address], [place] [phone] * URINE BACTERIA CULTURE (04/27/2024 3:08 PM CONSUMER ATTORNEY) SPEC DESCRIPTION URINE CLEAN CATCH 04/27/2024 3:06 PM CONSUMER ATTORNEY [facility] SPECIAL REQUESTS NO SPECIAL REQUEST 04/27/2024 3:06 PM CONSUMER ATTORNEY [facility] CULTURE RESULT NO GROWTH 2 DAYS 04/29/2024 6:47 AM CONSUMER ATTORNEY [facility] URINE SPECIMEN OBTAINED BY CLEAN CATCH PROCEDURE / Unknown 04/27/2024 3:08 PM CONSUMER ATTORNEY 04/27/2024 3:09 PM CONSUMER ATTORNEY us Maciej Kilgore MD MICROBIOLOGY - GENERAL PEDRO LÓPEZ Final Result [facility] [address] [place] [address], [place] [phone] * EKG WELCHALLEN ACQUIRED (04/26/2024 3:12 PM CONSUMER ATTORNEY) 04/26/2024 3:12 PM CONSUMER ATTORNEY Narrative [facility] - 04/26/2024 4:39 PM CONSUMER ATTORNEY [facility] [address] [place] [address] Test Date: 2024-04-26 Pat Name: CARROLL REYNA Department: 171 Room: Gender: Male Dragger: : 1940 Requested By: LIO PEARSON Order Number: [id number] Reading MD: Lio Pearson Measurements Intervals [place] Rate: 73 P: -17 TN: 180 QRS: 45 QRSD: 125 T: 58 QT: 389 QTc: 430 Interpretive Statements SINUS RHYTHM MODERATE INTRAVENTRICULAR CONDUCTION DELAY COMPARED TO PREVIOUS TRACING NO Changes UMER ATTORNEY Procedure Note Lio Pearson MD - 04/26/2024 [place] [address] [place] [address] Test Date: 2024-04-26 Pat Name: CARROLL REYNA Department: 171 Room: Gender: Male Dragger: : 1940 Requested By: LIO PEARSON Order Number: [id number] Reading : Lio Pearson Measurements Intervals [place] Rate: 73 P: -17 TN: 180 QRS: 45 QRSD: 125 T: 58 QT: 389 QTc: 430 Interpretive Statements SINUS RHYTHM MODERATE INTRAVENTRICULAR CONDUCTION DELAY COMPARED TO PREVIOUS TRACING NO Changes UMER ATTORNEY Lio Pearson MD PROCEDURES-ORDERABLE NO CHARGE Final Result [facility] * DIABETIC RETINOPATHY EXAM (NEGATIVE) (02/22/2024) [facility] Scanned SCANNING Final Resu lt Performing Organization Address City/[facility]/ZIP Co de Phone Number [facility] * LIPID PANEL (02/13/2024 2:58 AM CDT) CHOLESTEROL 120 MG/DL 02/13/2024 4:18 AM CDT [facility] Comment:DESIRABLE: <200 TRIGLYCERIDES 99 MG/DL 02/13/2024 4:18 AM CDT [facility] Comment:<150 NORMAL HDL 58 >39 MG/DL 02/13/2024 4:18 AM CDT [facility] LDL (CALCULATED) 42 MG/DL 02/13/20 4:18 AM CDT [facility] Comment:<100 OPTIMAL VLDL CALCULATION 20 MG/DL 02/13/20 4:18 AM CDT [facility] Comment:REFERENCE RANGE NOT ESTABLISHED CHOL/HDL RATIO 2.1 02/13/2024 4:18 AM CDT [facility] Comment:REFERENCE RANGE NOT ESTABLISHED LDL/HDL 0.7 02/13/2024 4:18 AM CDT [facility] Comment:REFERENCE RANGE NOT ESTABLISHED NON HDL CHOLESTEROL 62 MG/DL 02/13/2024 4:18 AM CDT [facility] Comment:REFERENCE RANGE NOT ESTABLISHED 02/13/2024 2:58 AM CDT Robert Bernardo MD LABORATORY Final Res ult Performing Organization Address City/State/[facility] Co de Phone Number [facility] [address] [phone], [id number] from Last 3 Months or Most Recently Relevant to Health Maintenance Insurance [employer] Advance Directives Documents on File Type Date Recorded Patient Coat Joiner Lockstitch Expl anation Advance Directives and Livin g Will 05/13/2024 3:43 PM * Full Code (Latest Code Status on File) Date Activated Date Inactivated Comments 05/10/2024 5:30 PM 05/12/2024 2:05 PM * Full Code Date Activated Date Inactivated Comments 02/12/2021 3:25 PM 02/12/2021 6:25 PM * Full Code Date Activated Date Inactivated Comments 12/04/2020 12:41 PM 12/04/2020 4:06 PM * Full Code Date Activated Date Inactivated Comments 11/09/2020 9:25 AM 11/09/2020 12:34 PM Care Teams Chemical Milling Processor Relationship Specialty Start Date End Date Luis Franco APNP [facility] [place] [address] PCP - General FAMILY PRACTICE 03/18/18
--- OUTSIDE RECORDS SUMMARY | 2024-07-18 12:35 | XMS_ITS | Continuity of Care Document ---
Author Name [facility] Organization [facility] Care Team Providers Care Sewing Supervisor Name Role Phone [facility] Unavailable Unavailable Medications Combined list of outpatient medications from Department of Defense and Veterans Affairs facilities.Medications provided include 1) outpatient medications from the last 15 months, and 2) patient-reported medications. Medication Details Route Status Patient Instructions Prescription Expires Prescription Number Last Dispense Date Ordering Provider Order Date Order Qty Source acetaminoph en/butalbit al/caffeine 325-50-40 mg tab See Instruct ions, Oral, # 60 EA, 0 total refill(s ), Hard Stop Oral (given by mouth) Complet ed 11/21/2023 4 2023 60.0 Ambulat ory Pharmac y acetaminoph en/butalbit al/caffeine 325-50-40 mg tab See Instruct ions Oral, # 60 EA, 0 total refill(s ), Hard Stop Oral (given by mouth) Discont inued 11/11/2023 4 2023 60.0 Ambulat ory Pharmac y cyclobenzap rine 5 mg tablet See Instruct ions, # 30 EA, 0 total refill(s ), Hard Stop Complet ed 11/16/2023 4 2023 30.0 Ambulat ory Pharmac y cyclobenzap rine 5 mg tablet 5 mg, Oral, TID, # 30 EA, 1 total refill(s ), Hard Stop Oral (given by mouth) Ordered 11/24/2024 4 2023 30.0 Ambulat ory Pharmac y hydroCHLORO thiazide 25 mg tablet See Instruct ions, # 90 EA, 3 total refill(s ), Hard Stop Complet ed 11/20/2023 4 2023 90.0 Ambulat ory Pharmac y Linzess 145 mcg capsule See Instruct ions, # 30 EA, 2 total refill(s ), Hard Stop Complet ed 02/18/2024 3 2023 30.0 Ambulat ory Pharmac y lisinopril 10 mg tablet 10 mg, See Instruct ions, # 90 EA, 1 total refill(s ), Hard Stop Complet ed 11/20/2023 3 2023 90.0 Ambulat ory Pharmac y lisinopril 10 mg tablet 10 mg, Oral, Daily, # 90 EA, 1 total refill(s ), Hard Stop Oral (given by mouth) Discont inued 11/24/2023 4 2023 90.0 Ambulat ory Pharmac y lisinopril 10 mg tablet 10 mg, Oral, Daily, # 90 EA, 1 total refill(s ), Hard Stop Oral (given by mouth) Ordered 11/04/2024 4 2023 90.0 Ambulat ory Pharmac y meloxicam 7.5 mg tablet See Instruct ions, Oral, Daily, # 90 EA, 1 total refill(s ), Hard Stop Oral (given by mouth) Discont inued 11/24/2023 4 2023 90.0 Ambulat ory Pharmac y meloxicam 7.5 mg tablet 7.5 mg, Oral, Daily, # 90 EA, 1 total refill(s ), Hard Stop Oral (given by mouth) Ordered 11/04/2024 4 2023 90.0 Ambulat ory Pharmac y meloxicam 7.5 mg tablet See Instruct ions, # 90 EA, 1 total refill(s ), Hard Stop Complet ed 11/20/2023 3 2023 90.0 Ambulat ory Pharmac y polyethylen e glycol 3350 suspension [510g] See Instruct ions, Oral, 0, # 510 g, 5 total refill(s ), Hard Stop Oral (given by mouth) Complet ed 03/18/2024 3 2023 510.0 Ambulat ory Pharmac y simvastatin 20 mg tablet 20 mg, Oral, # 90 EA, 3 total refill(s ), Hard Stop Oral (given by mouth) Ordered 11/04/2024 5 2024 90.0 Ambulat ory Pharmac y tamsulosin 0.4 mg capsule 0.4 mg, # 90 EA, 1 total refill(s ), Hard Stop Discont inued 09/15/2023 4 2023 90.0 Ambulat ory Pharmac y Immunizations Combined list of available immunizations from the Department of [facility] and [facility] facilities. Immunization Series Date Given Administered By Site Reaction Lot Number CVX Code Drug Size Tester Status Comments Source influenza, seasonal,high dose-pf 2015 135 sanofi pasteur complet ed influenza , seasonal, high dose-pf 03/05/16 Given Ambulat ory Pharmac y influenza, seasonal,high dose-pf 2014 135 sanofi pasteur complet ed influenza , seasonal, high dose-pf 01/31/15 Given Ambulat ory Pharmac y influenza, seasonal,high dose-pf 2013 135 sanofi pasteur complet ed influenza , seasonal, high dose-pf 01/29/14 Given Ambulat ory Pharmac y influenza, seasonal, injectable 2011 141 sanofi [facility] complet ed influenza , seasonal, injectabl e 12/22/11 Given Ambulat ory Pharmac y INFLUENZA, UNSPECIFIED FORMULATION 2007 88 complet ed [facility] PNEUMOCOCCAL, UNSPECIFIED FORMULATION 2004 109 complet ed [facility] influenza virus vaccine, whole virus 2001 zz[facility]ig Arm [id number] [facility] ed influenza virus vaccine, whole virus 04/15/02 Given Ambulat ory Pharmac y Procedures Combined list of: 1) Procedures from Department of Veterans Affairs facilities [facility], not all [place] non-surgical procedures are included; 2) All procedures from the Department of [facility] facilities. Procedure Procedure Type Code Date Perfomer Comments Sourc e No data available for this section Ambulatory P harmacy Social History Combined list of available smoking, tobacco, and other social history from Department of [facility] and Veterans Affairs facilities. Social History Type Response Date Comment Sourc e Tobacco smoking status NHIS QUIT TOBACCO >7 YEARS AGO 08/09/2007 [facility] Assessment and Plan Combined list of future care activities from Department of Defense and Veterans Affairs facilities (e.g., assessment and plan notes, appointments, orders, and referrals). Additional future care activities may be listed in the Plan of Care section. Result Assessment and Plan Date Source Assessment and Plan No data available for this section 07/18/2024 Ambulatory Pharmacy Functional Status Combined list of recent functional and cognitive assessments recorded at Department of Defense and Veterans Affairs ([place]).NE Functional [place] Measurement (FIM) Scale: 1 = Total Assistance (Subject = 0% +), 2 = Maximal Assistance (Subject = 25% +), 3 = Moderate Assistance (Subject = 50% +), 4 = Minimal Assistance (Subject = 75% +), 5 = Supervision, 6 = Modified [place] (Device), 7 = Complete [place] (Timely, Safely). Assessment Date/Time Source Assessment Type Assessment Skill Assessment Score Assessment Details No data available for this section
--- OUTSIDE RECORDS SUMMARY | 2024-07-18 12:35 | XMS_ITS | Clinical Summary ---
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 Surgical History Surgery Date Site/Laterality Comments HERNIA REPAIR CATARACT EXTRACTION KNEE ARTHROSCOPY SEPTOPLASTY 01/04/2020 NASAL TURBINATE REDUCTION 01/04/2020 Medical History Medical History Date Comments Hypertension Type 2 diabetes mellitus (HCC) Arthritis Migraine Sleep apnea Hearing loss Sinusitis Family History Medical History Relation Name Comments No Known Problems Father No Known Problems Mother Relation Name Status Comments Father Mother Social History Tobacco Use Types Packs/Day Years Used Date Smoking Tobacco: Former Smokeless Tobacco: Never Personal Safety Answer Date Recorded Getting School Help Needed Not on file 07/04 Sex and Gender Information Value Date Recorded Sex Assigned at Not on file Legal Sex Male 3:45 PM BASKET [employer]OR[employer] Gender Identity Not on file Sexual Orientation Not on file Obstetrics History Last Filed Vital Signs Vital Sign Reading [...] FOR LIFE MEDICARE FOR LIFE Care Teams Corporate Safety Coordinator Relationship Specialty Start Date End Date Gena Powers PA [address] [place] [id number] PCP - General Nurse Practitioner 12/12/19
== END 2024-07-18 10:48 | disposition home or self-care (01) ==
PROVIDERS: Visit Provider Urology
DX: N20.0 Calculus of kidney (principal)
CPT/HCPCS: 74018

== ENCOUNTER 2024-08-02 07:49 | Outpatient (CLI) | payer MEDICARE, OTHER, SELFPAY ==
--- NOTE | 2024-08-02 07:59 | ECG_ITS ---
Test Date: 2024-08-02 08:29:22 Measurements Intervals [place] Rate: 71 P: 88 [place]: 191 QRS: 57 QRSD: 134 T: 48 QT: 396 QTc: 432 Interpretive Statements SINUS RHYTHM RIGHT BUNDLE BRANCH BLOCK BASELINE ARTIFACT- I, II, III, AVR, AVL, AVF ABNORMAL ECG No previous ECG available for comparison Electronically Signed On 08-02-2024 08:34:57 CDT by Aditya Murillo D.O.
--- OUTSIDE RECORDS SUMMARY | 2024-08-02 08:01 | XMS_ITS | Clinical Summary ---
Author Organization [facility] Address [address] [place] [address] Care Team Providers Care Seasonal Clerk Name Role Phone Luis Powers Primary Care Provider [phone] Allergies No known active allergies Medications B Complex Cap capsule Take 1 capsule by mouth daily. Active Multiple Vitamins-Mineral s (ICAPS AREDS 2 OR) Take 1 tablet by mouth daily. Active Acetaminophen (TYLENOL ARTHRITIS PAIN OR) Take by mouth daily. Active CYSTEAMINE HCL OP Eye drops Active hydroCHLOROthiaz randee (HYDRODIURIL) 25 MG tabletIndication s:Essential hypertension take 1 tablet by mouth daily. 90 tablet 2 09/15/19 24 Active calcium-vitamin D (OSCAL) 250-3.125 MG-MCG tablet Take 1 tablet by mouth daily. Active Cholecalciferol (VITAMIN D-3 OR) Act sarahi simvastatin (ZOCOR) 20 MG tabletIndication s:Hypercholester olemia Take 1 tablet (20 mg total) by mouth nightly at bedtime. at bedtime 90 tablet 3 11/05/19 24 Active butalbital-aceta minophen-caffein e (ESGIC) 50-325-40 MG tabletIndication s:Nonintractable episodic headache, unspecified headache type Take 1-2 tabs every 8 hours PRN for headache 60 tablet 04/26/19 25 Active tamsulosin (FLOMAX) 0.4 MG CapIndications:B ilateral renal stones Take 1 capsule (0.4 mg total) by mouth daily. 90 capsule 1 07/01/19 25 Active fluticasone propionate (FLONASE) 50 MCG/ACT nasal sprayIndications :Seasonal allergic rhinitis, unspecified trigger INHALE 2 SPRAYS INTO EACH NOSTRIL ONCE DAILY 48 g 1 07/21/19 25 Active metFORMIN ER (GLUCOPHAGE-XR) 500 MG 24 hr tabletIndication s:Type 2 diabetes mellitus with hyperglycemia, without long-term current use of insulin ([facility]) TAKE 2 TABLETS IN THE MORNING AND ONE TABLET IN THE PM. 270 tablet 07/27/19 25 025 Active lisinopril (PRINIVIL) 10 MG tabletIndication s:Essential hypertension Take 1 tablet (10 mg total) by mouth daily. 90 tablet 07/27/19 25 Active fluticasone propionate (FLONASE) 50 MCG/ACT nasal sprayIndications :Seasonal allergic rhinitis, unspecified trigger 2 sprays by Each Nostril route daily. 48 g 6 07/03/19 24 025 Discontinued lisinopril (PRINIVIL) 10 MG tabletIndication s:Essential hypertension Take 1 tablet (10 mg total) by mouth daily. 90 tablet 1 11/05/19 24 025 Discontinued(Re order) metFORMIN ER (GLUCOPHAGE-XR) 500 MG 24 hr tabletIndication s:Type 2 diabetes mellitus with hyperglycemia, without long-term current use of insulin ([facility]) TAKE 2 TABLETS IN THE MORNING AND ONE TABLET IN THE PM. 270 tablet 04/11/20 24 025 Discontinued Active Problems Problem Noted Date Diagnosed Date [...] complication, without long-term current use of insulin ([facility]) Resolved Problems Problem Noted Date Diagnosed Date Resolved Date Chronic kidney disease, stage III (moderate) 2 11/20/2022 Encounter for prostate cancer screening 05/11/2015 12/30/2019 Encounter for preventive health examination 01/27/2012 12/30/2019 Encounters Date Type Department Care Team Description 07/27/2024 Telephone [facility] Family & Internal [address] [phone] Luis Powers APNP Information 07/18/2024 Scan Pixable INFO SRVCS Scanned, [facility] 07/04/[address] [address] Luis Powers APNP Advice 07/01/2024 Telephone [facility] Family Internal [address] [address] Luis Powers APNP Information 07/01/2024 Telephone [facility] - [address], [address] [place] [address] Maciej Shafer MD Question 06/29/2024 Telephone [facility] [address] [address] Luis Powers APNP Lab Results 06/27/2024 7:04 AM CDT - 06/27/2024 11:59 PM CDT Hospital Encounter [facility] [address] [place] [address] Luis Powers APNP Discharge Disposition: Home or Self Care (Routine Discharge) 06/27/2024 Travel 06/23/2024 11:00 AM POKER PROP PLAYER Office Visit [facility] [address] [place] [address] Luis Powers APNP Lab Order (Pt is requesting orders for routine labwork.); Flank Pain (Pt c/o mild right flank pain. Pt requesting new referral for Urology given his hx of kidney stones.) 06/23/2024 Travel 06/17/2024 10:40 AM POKER PROP PLAYER Office Visit [facility] - [address], [address] [place] [address] Maciej Shafer MD Post Operative (Post-op) 06/17/2024 9:49 AM POKER PROP PLAYER - 06/17/2024 11:59 PM POKER PROP PLAYER Hospital Encounter [facility] [address] [place] [address] Maciej Shafer MD Discharge Disposition: Home or Self Care (Routine Discharge) 06/16/2024 Travel 05/19/2024 3:00 PM POKER PROP PLAYER Office Visit [facility] - [address], [address] [place] [address] Maciej Shafer MD Post Operative 05/19/2024 Travel 05/17/2024 11:20 AM POKER PROP PLAYER Office Visit [facility] [address] [address] Luis Powers APNP [facility] 05/17/2024 Hospital Follow-up Call [facility] [place] [address] Gisella Reed LPN Follow Up Call (BEAU 05/10-05/12/24) 05/17/2024 Travel 05/16/2024 Telephone [facility] [address] [address] Luis Powers APNP Lab Results 05/16/2024 Telephone [facility] - [facility] [address] [facility], [address] [place] [phone] Maciej Shafer MD Reschedule 05/10/2024 2:30 PM POKER PROP PLAYER - 05/10/2024 4:36 PM POKER PROP PLAYER Surgery [facility] [address] Maciej Shafer MD RIGHT JUSTICE HOLES FOR EVACUATION OF SUBDURAL HEMATOMA 05/10/2024 1:50 PM POKER PROP PLAYER Anesthesia Event [facility] [address] Andrea Huddleston MD Jarvis, Brittany L, PROOF MACHINE OPERATOR 05/10/2024 11:25 AM POKER PROP PLAYER - 05/12/2024 11:59 AM POKER PROP PLAYER Hospital Encounter [facility] Med/Surg [address] [place] [address] Maciej Shafer MD Discharge Disposition: Home or Self Care (Routine Discharge) 05/10/2024 Travel 05/09/2024 [facility] [address], [address] [place] [phone] Maciej Shafer MD Surgery Questions from Last 3 Months Immunizations Immunization Administration Dates Next Due Fluzone High Dose [...] Shingrix 11/12/2018,09/10/2017 Tdap (Adacel) 01/03/2022 Zoster (Zostavax) [address] Unt/0.65Ml 06/20/2013 Family History Medical History Relation [...] from your doctor or pharmacy? Sometimes 05/10/2024 [facility] Utilities Answer Date Recorded In the past 12 months has e [employer], gas, oil, or water [employer] threatened to shut off services in your [...] Recorded Patient Health Questionnaire-2 Score 0 11/05/2023 [facility] - Occupational Stress Questionnaire Answer Date Recorded [...] any time in the past 12 m [facility], were you homeless or living in a correction (including now)? No 05/10/2024 Sex and Gender Information Value Date Recorded Sex Assigned at Male 05/10/2024 11:24 AM POKER PROP PLAYER Legal Sex Male 5:39 PM CDT Gender Identity Not on file Sexual Orientation Not on file Last Filed Vital Signs Vital Sign Reading Time Taken Comments Blood Pressure 106/68 06/23/2024 11:12 AM POKER PROP PLAYER Pulse 79 06/23/2024 11:12 AM POKER PROP PLAYER Temperature 37 C (98.6 F) 06/23/2024 11:12 AM POKER PROP PLAYER Respiratory Rate 16 06/23/2024 11:12 AM POKER PROP PLAYER Oxygen Saturation 97% 06/23/2024 11:12 AM POKER PROP PLAYER Inhaled Oxygen Concentration - - Weight 77.4 kg (170 lb 9.6 oz) 06/23/2024 11:12 AM POKER PROP PLAYER Height 182.9 cm (6') 06/23/2024 11:12 AM POKER PROP PLAYER Body Mass Index 23.14 06/23/2024 11:12 AM POKER PROP PLAYER Plan of Treatment Upcoming Encounters Date Type Department Care Team (Late st Contact Info) Description 08/03/2024 9:20 AM CDT Office Visit [facility] Family & Internal Medicine - [address] [phone] Luis Powers, DESIREE [facility] [place] [address] Health Maintenance Due Date Last Done Comments Kidney Health Evaluation 1940 Annual Medicare Wellness Visit 06/29/2007 RSV Immunization or 60+ Years (1 - 1-dose 75+ series) 2017 PHQ-2 (Physician [place]) 04/20/2024 11/05/2023 COVID-19 Vaccine ( season) 2024 02/17/2024, 01/09/2023, 01/11/2022, Additional history exists Hemoglobin A1C 10/25/2024 04/27/2024, 01/19, 11/05/2023, Additional history exists Lipid Panel 02/12/2025 02/13/2024, 12/2022, 01/08/2022, Additional history exists Diabetes: Retinopathy Eye Exam 02/21/2026 02/22/2024, 06/29/2023, 07/07/2022, Additional history exists DTaP, Tdap and Td Vaccines (2 - Td or Tdap) 01/04/2032 01/03/2022 Zoster Vaccines Completed 11/12/2018, 08/19, 06/20/2013 Pneumococcal Vaccine: 50+ Years Completed 06/01/2019, 06/20/2013 Meningococcal B Vaccine [...] perform ADLs independently Lifestyle No Yamel Haney, TAR 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 Devices Implanted Type Area Bean Roaster Device Identifier Shelf Expiration Date Model / Serial / Lot Stent Uret 6fr 30cm Pigtl Crv Taper Tip Bldr Mrk - [id number] Implanted:Qty : 1 on 02/12/2021 by Isaac Chahal MD at [facility] Stent Right: Ureter [employer] [id number] 08/04/2023 [id number] 50 / / [id number] K-Wire Implanted:Qty : 1 on 11/09/2020 by Timi Roblero DPM at [facility] Toe Left: Toe [employer] [id number] 07/20/2024 / / [id number] 1 K Wire 0.045 Implanted:Qty : 1 on 07/25/2022 by Timi Roblero DPM at [facility] Wire Right: Toe [employer] [id number] 10/07/2025 / / [id number] 2 Description:RIGHT BIG TOE Explanted Type Area Bean Roaster Device Identifier Shelf Expiration Date Model / Serial / Lot Stent Bard [employer] 6fr X 28cm - [id number] Implanted:Qty : 1 on 12/04/2020 by Isaac Chahal MD at [facility] Explanted:Qty : 1 on 12/13/2020 at [facility] Stent Left: Ureter [employer] [id number] 10/31/2024 [id number] / / [id number] Procedures Procedure Name Priority Date/Time Associated Diagnosis Comments CT ABD+PEL WO CON MARCIO 06/27/2024 7:2 3 AM CDT Flank pain Other microscopic hematuria URINALYSIS AUTO DIP Routine 06/23/[address] HEAD WO CON Routine 06/17/2024 9:59 AM POKER PROP PLAYER S/P evacuation of subdural hematoma POCT GLUCOSE - BARBOSA DOCKED DEVICE Routine 05/12/2024 6:00 AM POKER PROP PLAYER POCT GLUCOSE - BARBOSA DOCKED DEVICE Routine 05/11/2024 7:48 PM POKER PROP PLAYER POCT GLUCOSE - BARBOSA DOCKED DEVICE Routine 05/11/2024 4:23 PM POKER PROP PLAYER POCT GLUCOSE - BARBOSA DOCKED DEVICE Routine 05/11/2024 10:45 AM POKER PROP PLAYER POCT GLUCOSE - BARBOSA DOCKED DEVICE Routine 05/11/2024 6:05 AM POKER PROP PLAYER POCT GLUCOSE - BARBOSA DOCKED DEVICE Routine 05/10/2024 7:27 PM POKER PROP PLAYER POCT GLUCOSE - BARBOSA DOCKED DEVICE Routine 05/10/2024 6:[address] HEAD WO CON Today 05/10/2024 5:04 PM POKER PROP PLAYER POCT GLUCOSE - BARBOSA DOCKED DEVICE Routine 05/10/2024 3:14 PM POKER PROP PLAYER JUSTICE HOLE SUBDURAL HEMATOMA EVACUATION 05/10/2024 1:49 PM POKER PROP PLAYER SUBDURAL HEMATOMA S06.5XAA Case Notes SCHED BY FAX 04/18/2024 [facility] PRETEST 04/27 @ 1530 POCT GLUCOSE - BARBOSA DOCKED DEVICE Routine 05/10/2024 12:43 PM POKER PROP PLAYER HEMOGLOBIN, GLYCOSYLATED Routine 04/27/2024 3:09 PM POKER PROP PLAYER Type 2 diabetes mellitus with other circulatory complication, without long-term current use of insulin ([facility]) DIABETIC RETINOPATHY EXAM (NEGATIVE)(SCAN ORDER) Routine 02/22/2024 [...] chronic findings as described. Ordered By: LUIS POWERS Interpreted By: Rigoberto Colon MD, 06/27/2024 8:50 AM Narrative 06/27/2024 9:05 AM CDT [facility] [address] [place] [address] EXAMINATION: CT Abdomen and Pelvis without contrast [...] the liver is partially excluded from the imurl-yo-xvah. Liver is otherwise unremarkable. The spleen, pancreas, [...] fracture or destructive bone lesion. Procedure Note Isaiah, Rigoberto Khalil MD - 06/27/2024 [place] [address] EXAMINATION: CT Abdomen and Pelvis without contrast [...] of the liver is partially excludedfrom the mnsrr-cp-fpoa. Liver is otherwise unremarkable. The spleen,pancreas, adrenal [...] chronic findings as described. Ordered By: LUIS POWERS Interpreted By: Rigoberto Colon MD, 06/27/2024 8:50 AM Luis Powers APNP CT Final Resul t * (ABNORMAL) URINALYSIS AUTO DIP (06/23/2024) COLOR (U) YELLOW YELLOW [facility] TRANSPARENCY CLEAR CLEAR [facility] GLUCOSE (U) 500 mg/dl(A) NEGATIVE MG/DL [facility] BILIRUBIN (U) NEGATIVE NEGATIVE [facility] KETONES MG/DL (U) NEGATIVE NEGATIVE MG/DL [facility] SPECIFIC GRAVITY (U) 1.015 1.001 - 1.035 [facility] BLOOD (U) MODERATE (2+ Hemolyzed, About 50 rbc/uL)(A) NEGATIVE [facility] U PH 5.5 5.0 - 9.0 [facility] PROTEIN (U) NEGATIVE NEGATIVE mg/dL [facility] UROBILINOGEN 0.2 0.2 - 1.0 EU/dL = mg/dL [facility] NITRITES NEGATIVE NEGATIVE MG/DL [facility] LEUKOCYTES (U) NEGATIVE NEGATIVE [facility] URINE SPECIMEN OBTAINED BY CLEAN CATCH PROCEDURE / Unknown 06/23/2024 us Luis RAMÍREZ URINE ORDERABLES Final Resu lt [facility] [address] [place] [address], [place] * CT HEAD WO CON (06/17/2024 9:59 AM POKER PROP PLAYER) Only the most recent of2 resultswithin the time period is included. Anatomical Region Laterality Modality Head Computed Tomogra phy 06/19/2024 2:31 PM POKER PROP PLAYER Impressions 06/19/2024 2:35 PM POKER PROP PLAYER IMPRESSION: 1. Small late subacute upper right subdural hematoma measuring up to 0.5 cm in width along the right frontal convexity, decreased in size compared to the prior CT. No interval hemorrhage. 2. 0.2 cm of leftward midline shift shift, unchanged. Referred By: MACIEJ SHAFER Interpreted By: Raimundo De Anda MD, 06/19/2024 2:31 PM Narrative 06/19/2024 2:35 PM POKER PROP PLAYER [address] [address] EXAMINATION:Head CT without contrast 06/17/2024 INDICATION:Follow-up subdural [...] Note Raimundo De Anda MD - 06/19/[address] [address] EXAMINATION:Head CT without contrast 06/17/2024 INDICATION:Follow-up subdural [...] leftward midline shift shift, unchanged. Referred By: MCAIEJ SHAFER Interpreted By: Raimundo De Anda MD, 06/19/2024 2:31 PM us Maciej Shafer MD CT Final Resul t * (ABNORMAL) POCT glucose (05/12/2024 6:00 AM POKER PROP PLAYER) Only the most recent of9 resultswithin the time period is included. GLUCOSE POC 177(H) 70 - 99 mg/dL 05/12/2024 6:08 AM POKER PROP PLAYER [facility] 05/12/2024 6:00 AM POKER PROP PLAYER Maciej Shafer MD POCT ORDERABLES - DEVICE Fi nal Result Performing Organization Address [facility] de Phone Number [facility] [address] [place] [id number], * (ABNORMAL) HEMOGLOBIN, GLYCOSYLATED (04/27/2024 3:09 PM POKER PROP PLAYER) HGB A1C 8.3(H) <5.7 % 04/27/2024 6:23 PM POKER PROP PLAYER [facility] Comment: ADA GUIDELINES 2009 5.7 TO 6.4% INCREASED RISK OF DIABETES > OR = 6.5% CONSISTENT WITH DIABETES ESTIMATED AVG GLUCOSE 192 mg/dL 04/27/2024 6:23 PM POKER PROP PLAYER [facility] 04/27/2024 3:09 PM POKER PROP PLAYER Luis RAMÍREZ LABORATORY Final Resul t Performing Organization Address [facility] de Phone Number [facility] [address] [place] [id number], [place] [phone] * DIABETIC RETINOPATHY EXAM (NEGATIVE) (02/22/2024) [facility] Scanned SCANNING Final Resu lt Performing Organization Address City/[facility] Co de Phone Number [facility] ONBASE * LIPID PANEL (02/13/2024 2:58 AM CDT) CHOLESTEROL 120 MG/DL 02/13/2024 4:18 AM CDT [facility] Comment:DESIRABLE: <200 TRIGLYCERIDES 99 MG/DL 02/13/2024 4:18 AM CDT [facility] Comment:<150 NORMAL HDL 58 >39 MG/DL 02/13/2024 4:18 AM CDT [facility] LDL (CALCULATED) 42 MG/DL 02/13/20 4:18 AM CDT [facility] Comment:<100 OPTIMAL VLDL CALCULATION 20 MG/DL 02/13/20 4:18 AM CDT [facility] Comment:REFERENCE RANGE NOT ESTABLISHED CHOL/HDL RATIO 2.1 02/13/2024 4:18 AM CDT [facility] Comment:REFERENCE RANGE NOT ESTABLISHED LDL/HDL 0.7 02/13/2024 4:18 AM CDT [facility] Comment:REFERENCE RANGE NOT ESTABLISHED NON HDL CHOLESTEROL 62 MG/DL 02/13/2024 4:18 AM CDT [facility] Comment:REFERENCE RANGE NOT ESTABLISHED 02/13/2024 2:58 AM CDT Robert Bernardo MD LABORATORY Final Res ult [facility] [address] [place] [address], [id number] from Last 3 Months or Most Recently Relevant to Health Maintenance Insurance MEDICARE [facility] Advance Directives Documents on File Type Date Recorded Patient Renewals Specialist Expl anation Advance Directives and Livin g [...] 9:25 AM 11/09/2020 12:34 PM Care Teams Seasonal Clerk Relationship Specialty Start Date End Date Luis Powers APNP [address] [place] [phone] PCP - General FAMILY PRACTICE 03/18/18
--- OUTSIDE RECORDS SUMMARY | 2024-08-02 08:01 | XMS_ITS | Continuity of Care Document ---
Author Name [facility] Organization [facility] Care Team Providers Care Driller'S Offsider Name Role Phone [facility] Unavailable Unavailable Medications Combined list of outpatient [...] Stop Oral (given by mouth) Discont inued 07/29/2024 4 2024 90.0 Ambulat ory Pharmac y lisinopril 10 mg tablet 10 mg, Oral, Daily, # 90 EA, 0 total refill(s ), Soft Stop Oral (given by mouth) Ordered 5 2024 90.0 Ambulat ory Pharmac y meloxicam 7.5 [...] of available immunizations from the Department of Defense and Veterans Affairs facilities. Immunization Series Date Given Administered By Site Reaction Lot Number CVX Code Drug Senior Actuarial Analyst Status Comments Source influenza, seasonal,high dose-pf 2015 [...] y influenza, seasonal, injectable 2011 141 sanofi pasteur complet ed influenza , seasonal, injectabl e 12/22/11 Given Ambulat ory Pharmac y INFLUENZA, UNSPECIFIED FORMULATION 2007 88 complet ed [facility] PNEUMOCOCCAL, UNSPECIFIED FORMULATION 2004 109 complet ed [facility] influenza virus vaccine, whole virus 2001 [id number] ht [id number] sanofi pasteur complet ed influenza virus vaccine, whole virus 04/15/02 Given Ambulat ory Pharmac y Procedures Combined list of: 1) Procedures from Department of Veterans Affairs facilities going back up to thelast 18 months, not all VA non-surgical procedures are included; 2) All procedures from the Department of Defense facilities. Procedure Procedure Type Code Date Perfomer Comments Sourc e No data available for this section Ambulatory P harmacy Social History Combined list of available smoking, tobacco, and other social history from Department of Defense and Veterans Affairs facilities. Social History Type Response Date Comment Sour e Tobacco smoking status NHIS QUIT TOBACCO >7 YEARS AGO 08/09/2007 [facility] Assessment and Plan Combined list of future care activities from Department of Defense and Veterans Affairs facilities (e.g., assessment and plan notes, appointments, orders, and referrals). Additional future care activities may be listed in the Plan of Care section. Result Assessment and Plan Date Source Assessment and Plan No data available for this section 08/02/2024 Ambulatory Pharmacy Functional Status Combined list of recent functional and cognitive assessments recorded at [facility] and [facility] ([place]VA Functional [place] Measurement (FIM) Scale: 1 = Total Assistance (Subject = 0% +), 2 = Maximal Assistance (Subject = 25% +), 3 = Moderate Assistance (Subject = 50% +), 4 = Minimal Assistance (Subject = 75% +), 5 = Supervision, 6 = Modified [place] (Device), 7 = Complete [place] (Timely, Safely). Assessment Date/Time Source Assessment Type Assessment Skill Assessment Score Assessment Details No data available for this section
--- OUTSIDE RECORDS SUMMARY | 2024-08-02 08:01 | XMS_ITS | Clinical Summary ---
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
--- OUTSIDE RECORDS SUMMARY | 2024-08-02 08:01 | XMS_ITS | Referral Summary ---
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
[2024-08-02 08:46] LABS: Anion Gap 10 mmol/L (4-12); Blood Urea Nitrogen 29 mg/dL (9-20); Calcium 9.7 mg/dL (8.4-10.2); Carbon Dioxide 28 mmol/L (22-30); Chloride 100 mmol/L (98-107); Estimated Glomerular Filt Rate 54; Glucose 220 mg/dL (65-110); Sodium 138 mmol/L (137-145)
[2024-08-02 08:47] LABS: INR 0.9; Partial Thromboplastin Time 26.3 Seconds (22.3-36.8); Prothrombin Time 12.7 Seconds (11.1-14.7)
== END 2024-08-02 07:50 | disposition home or self-care (01) ==
LOC: ANHSURGERY 07:55
PROVIDERS: Anesthesiology; PCP Registered Nurse; Visit Provider Urology
DX: N20.0 Calculus of kidney (principal); E11.9 Type 2 diabetes mellitus without complications; I10 Essential (primary) hypertension; Z79.899 Other long term (current) drug therapy
CPT/HCPCS: 36415; 80048; 85610; 85730; 87086; 93005

== ENCOUNTER 2024-08-12 03:03 | Day surgery (SDC) | payer MEDICARE, OTHER, SELFPAY ==
[2024-07-27 15:49] VITALS: BMI 22.1
--- NOTE | 2024-07-27 16:11 | PC.NURSE ---
Report to the Outpatient Waiting Room, entrance under the green pavilion located off [facility], at time __0630am on date __08/12/24 . Planned Procedure Time: _0830am .? Time changes happen often and if your time is changed the preop area will call you the afternoon before. - You and your visitor will be asked to self-screen and do not enter if you have any COVID symptoms. Please call surgeon if you need to reschedule. - A mask is optional within the hospital at this time. Patients may have clear liquids (water, carbonated beverages, clear teas, apple juice) until 3 hours prior to surgery with a maximum of 20 ounces. - No food from midnight until time of surgery and no smoking, or chewing tobacco (or any form of nicotine). No chewing gum, candy or mints. (0530am) Take only the following medications with a SIP of water on the morning of surgery: ___Tylenol if needed, Cyclobenzaprine if needed DO NOT STOP ANY OF YOUR OTHER PRESCRIPTION MEDICATIONS PRIOR TO SURGERY EXCEPT THE FOLLOWING Hold all vitamins and supplements for 3 days per anesthesiologist.Date to take last dose 08/08/24 Medications to discontinue per physician ___No aspirin or NSAID/MOTRIN for [address] Fernandez Date to take last dose____08/03/24 Please no make-up, nail setswana, hairspray, perfume, deodorant, or body powder the day of surgery.? No jewelry (including any body piercings) or valuables the day of surgery, leave them at home.? Please take a shower or bath the night before, or the morning of, surgery with an antibacterial soap.? Wear comfortable, loose fitting clothing.? - Jewelry must be removed prior to entering the operating room.? Rings and piercings that are not removed may be cut off. - The hospital will not accept responsibility for valuables.? - Please leave all valuables, including medications, at home the day of surgery. If you are going home after surgery, a licensed bottom hoop driver must drive you home.? - NO public transportation without another adult if you receive anesthesia. - We recommend that an adult stay with you for 24 hours following discharge. - We also recommend that you do not drive, make important decision, drink alcoholic beverages, or take any drugs that were not prescribed by your health care provider for at least 24 hours after your discharge time. Follow any additional instructions given to you from your surgeon. Telephone instructions given to ___Patient and asked if any additional questions and then verbalized understanding. Patient advised to call surgeon office or pre surgery nurse liaison [phone] if any additional questions.
[2024-08-12] VITALS (7 sets, daily range): BP systolic 114–133; BP diastolic 61–77; PULSE 55–73; RESP 14–20; TEMP 36.6–36.9; O2SAT 97–100
--- NOTE | ~2024-08-12 | XR_ITS ---
Supine and upright views of the abdomen Clinical history: Lithotripsy COMPARISON: 07/18/2024 Findings: Bowel gas pattern is nonspecific. No evidence for obstruction or free air. Multiple bilater al renal stones are again present, largest in the right kidney measuring 10 mm. Osseous structures ar e intact. Impression: Bilateral nephrolithiasis, unchanged. Reviewed, dictated and finalized at location . Impression: Bilateral nephrolithiasis, unchanged.
--- OUTSIDE RECORDS SUMMARY | 2024-08-12 03:08 | XMS_ITS | Referral Summary ---
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
--- OUTSIDE RECORDS SUMMARY | 2024-08-12 03:08 | XMS_ITS | Clinical Summary ---
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
[2024-08-12] MEDS: LACTATED RINGERS 1,000 ML 30 ML IV CONT (07:00)
[2024-08-12 07:16] LABS: Glucose Point of Care 174 mg/dl (65-105)
--- NOTE | 2024-08-12 07:26 | WPDHPUPDATE1 ---
History and Physical Update Update Date/Time: 08/12/24 07:26 History and Physical has been reviewed, including an updated exam of the patient. There are NO changes in the patient's condition. Risks, benefits, and alternatives have been discussed and questions answered. Patient agrees to proceed with procedure.
--- NOTE | 2024-08-12 07:27 | WPDHPUPDATE1 ---
History and Physical Update Update Date/Time: 08/12/24 07:27 History and Physical has been reviewed, including an updated exam of the patient. There are NO changes in the patient's condition. Risks, benefits, and alternatives have been discussed and questions answered. Patient agrees to proceed with procedure. proceed iwth cystoscopy, right retrograde, right eswl
--- NOTE | 2024-08-12 07:53 | P.PNAN_ITS ---
Anes - Initial Pre Proc Eval Procedure: Operation Date: 08/12/24 08:30 Proposed Procedures p Right Extracorporeal Shock Wave Lithotripsy - Will Fernandez MD s Cystoscopy, Right Retrograde Pyelogram, Right Stent Placement - Will Fernandez MD Date/Time: 08/12/24 07:53 Surgeon: Will Fernandez MD Pre Op Diagnosis: Rt Kidney Stone Patient Data Age: 84 Gender: M Height: 1.83 m Weight: 74 kg Allergies Allergy/AdvReac Type Severity Reaction Status Date / Time No Known Allergies Allergy Verified 08/12/24 07:51 Home Medications ?Medication ?Instructions ?Recorded ?Confirmed ?Type acetaminophen 325 mg tablet 325 mg PO ONCE PRN pain 07/27/24 07/27/24 History (Aminofen) aspirin-caffeine 500 mg-32.5 mg 1 tablet PO DIRECTED PRN pain 07/27/24 07/27/24 History tablet (Back and Body Pain Reliever) tcfiaqvnxc-dtucttjczafgj-guumjvzm 1 tablet PO Q6H PRN headache 07/27/24 07/27/24 History 50 mg-325 mg-40 mg tablet calcium carbonate (Calcium 600) 600 mg PO DAILY 07/27/24 07/27/24 History cyclobenzaprine 5 mg tablet 5 mg PO Q8H PRN muscle spasm 07/27/24 07/27/24 History diphenhydramine HCl 50 mg tablet 50 mg PO HS 07/27/24 07/27/24 History (Benadryl Allergy) hydrochlorothiazide 25 mg tablet 25 mg PO DAILY 07/27/24 07/27/24 History lisinopril 10 mg tablet 10 mg PO DAILY 07/27/24 07/27/24 History metformin 500 mg tablet 1,000 mg PO BID 07/27/24 07/27/24 History thjplrug-pwz-pd7-dha 133 mg-epa cap PO DIRECTED PRN dry eye 07/27/24 History 167 pr-fxad-zqwa-lactoferrin capsule (Dry Eye Formula) multivitamin (Daily Multi-Vitamin 1 tablet PO DAILY 07/27/24 07/27/24 History tablet) omega 1-tuv-wvi-fish oil 1,200 mg 1 cap PO DAILY 07/27/24 07/27/24 History (144 mg-216 mg) capsule (Fish Oil) simvastatin 20 mg tablet 20 mg PO QPM 07/27/24 07/27/24 History tamsulosin 0.4 mg capsule (Flomax) 0.4 mg PO HS 07/27/24 07/27/24 History vitamin B complex 1 tablet PO DAILY 07/27/24 07/27/24 History Laboratory Tests 08/12/24 07:14 POC Capillary Glucose 174 H mg/dl (65-105) Patient hx anesthesia problems: none Family hx anesthesia problems: none Results Review: All pre-operative results and documents have been reviewed as part of the pre- operative evaluation. [facility] Past Medical History Medical History (Updated 08/12/24 @ 07:53 by Timi Lancaster MD) Hyperlipidemia Diabetes HTN (hypertension) Surgical History Surgical History (Updated 08/12/24 @ 07:54 by Timi Lancaster MD) History of justice hole surgery 06/14 [facility] Social History Social History Smoking packs per day: 1 Smoking cigarettes per day: 20.0 Years smoked: 4 Smoking pack-years: 4.00 Smoking status: Former smoker Smoking end date: 04/20/74 Alcohol intake: current Drinks per week: 1 Alcohol use details: 1 a week Substance use: never Living arrangements: alone Spiritual care concerns: No Anes - Eval Final PreProcedure Day of Procedure 08/12/24 07:53 Patient weight: normal Heart: regular rate and rhythm Lungs: clear to auscultation Airway: Mallampati scale class II Neurological: alert and oriented Last oral intake: >/= 8 hours ASA classification: III Emergent: no Anesthetic plan: proceed Anesthesia type and monitoring: general GIVS and standard monitoring Results Review: All pre-operative results and documents have been reviewed as part of the pre- operative evaluation. Informed Consent: The patient's anesthetic plan and its attendant risks and benefits were discussed with the patient/family/POA. Questions were solicited and answers provided to the satisfaction of the patient/family/POA.
[2024-08-12] MEDS: ceFAZolin 2 GM/D5W 50 ML 2 GM/50 ML BAG IVPB (08:31)
[2024-08-12] MEDS: LIDOCAINE 2% GEL UROJET 10 ML PKG MUCOUS MEM (08:54)
--- NOTE | 2024-08-12 09:15 | W.PM.PROC2 ---
Procedure Note - Detailed Date of Procedure 08/12/24 Pre-op Diagnosis Rt Kidney Stone Post-op Diagnosis Same Procedure Performed Cystoscopy, right stent placement, 4.8 British contour, right renal lithotripsy Surgeon Will Fernandez MD Anesthesia General Description of Procedure Patient was taken to the operative suite correctly identified. Once anesthesia was obtained he was prepped and draped usual sterile fashion. Sixteen British scope was inserted into the urethra. There were no urethral strictures. The bladder itself has 1 to 2+ trabeculation without any evidence of tumors. Right ureteral orifice was cannulated with a guidewire. The placed a 4.8 British contour stent with the proximal end coiled in the renal pelvis and the distal in the bladder. The patient was then repositioned after 2% viscous lidocaine was inserted into the urethra. The largest stone was localized and 2500 shocks were given to the stone. He tolerated procedure well without any complications and was taken recovery stable condition. A follow-up 7-10 days with KUB. This completes dictation. Please send a copy of op note to my office Estimated Blood Loss 0 Drains Yes Packing No Pathology Yes Complications No immediate complications Condition Stable Disposition PACU
[2024-08-12 10:00] LABS: Glucose Point of Care 152 mg/dl (65-105)
[2024-08-12] MEDS: fentaNYL CITRATE INJ (*CRX) 100 MCG/2 ML VIAL 25 MCG IV PUSH ×2 (10:12→10:16)
== END 2024-08-12 11:25 | disposition home or self-care (01) ==
PROVIDERS: PCP Registered Nurse; Visit Provider Urology
PROC: (CPT 50590; principal; 2024-08-12 08:30)
PROC: (CPT 52352; 2024-08-12 08:30)
DX: N20.0 Calculus of kidney (principal); E78.5 Hyperlipidemia, unspecified; I10 Essential (primary) hypertension; E11.9 Type 2 diabetes mellitus without complications; Z79.84 Long term (current) use of oral hypoglycemic drugs; Z79.82 Long term (current) use of aspirin; Z79.899 Other long term (current) drug therapy; Z98.890 Other specified postprocedural states; Z87.891 Personal history of nicotine dependence
CPT/HCPCS: 52356; 74018; 82948; C1769; C2617; J0690; J2003; J2371; J2405; J2704; J3010; J7030; J7120

== ENCOUNTER 2024-09-01 11:31 | Outpatient (CLI) | payer MEDICARE, OTHER, SELFPAY ==
--- NOTE | ~2024-09-01 | XR_ITS ---
XR abdomen/kub 1V 09/01/2024 11:57 Indication: Renal stone Procedure: KUB Comparison: Comparison to multiple prior studies sequentially, with oldest reviewed study dated 07/18. Findings: Bowel gas pattern nonobstructive. Large amount of retained fecal material in the colon. The re are multiple bilateral renal stones. There is a right internal ureteral stent in expected position . There are pelvic phleboliths. Moderate lumbar spondylosis. Impression: 1: Bilateral nephrolithiasis. Reviewed, dictated and finalized at location A. Impression: 1: Bilateral nephrolithiasis.
--- OUTSIDE RECORDS SUMMARY | 2024-09-01 11:36 | XMS_ITS | Clinical Summary ---
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
--- OUTSIDE RECORDS SUMMARY | 2024-09-01 11:36 | XMS_ITS | Referral Summary ---
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
--- OUTSIDE RECORDS SUMMARY | 2024-09-01 11:37 | XMS_ITS | Clinical Summary ---
Author Organization [facility] Address [address] [place] [address] Care Team Providers Care Almond Cutting Machine Tender Name Role Phone Luis Powers Primary Care Provider [phone] Allergies No known active allergies Medications B [...] at bedtime 90 tablet 3 4 Active butalbital-aceta minophen-caffein e (ESGIC) 50-325-40 MG tabletIndication s:Nonintractable episodic headache, unspecified headache type Take 1-2 tabs every 8 hours PRN for headache 60 tablet 5 Active tamsulosin (FLOMAX) 0.4 MG CapIndications:B ilateral renal stones Take 1 capsule (0.4 mg total) by mouth daily. 90 capsule 1 5 Active fluticasone propionate (FLONASE) 50 MCG/ACT nasal sprayIndications :Seasonal allergic rhinitis, unspecified trigger INHALE 2 SPRAYS INTO EACH NOSTRIL ONCE DAILY 48 g 1 5 Active lisinopril (PRINIVIL) 10 MG tabletIndication s:Essential hypertension Take 1 tablet (10 mg total) by mouth daily. 90 tablet 5 Active metFORMIN ER (GLUCOPHAGE-XR) 500 MG 24 hr tabletIndication s:Type 2 diabetes mellitus with hyperglycemia, without long-term current use of insulin ([facility]) TAKE 2 TABLETS TWICE DAILY 360 tablet 1 5 11/03/19 25 Active metFORMIN ER (GLUCOPHAGE-XR) 500 MG 24 hr tabletIndication s:Type 2 diabetes mellitus with hyperglycemia, without long-term current use of insulin ([facility]) TAKE 2 TABLETS IN THE MORNING AND ONE TABLET IN THE PM. 270 tablet 5 08/04/19 25 Discontinu ed(Reorder ) Active Problems Problem Noted Date Diagnosed Date [...] complication, without long-term current use of insulin ([facility]) Resolved Problems Problem Noted Date Diagnosed Date Resolved Date Chronic kidney disease, stage III (moderate) 2 11/20/2022 Encounter for prostate cancer screening 05/11/2015 12/30/2019 Encounter for preventive health examination 01/27/2012 12/30/2019 Encounters Date Type Department Care Team Description 08/12/2024 Scan [facility] Scanned, [facility] Image (SCAN); Lab (SCAN); Procedure (SCAN) 08/03/2024 9:20 AM CDT Office Visit [facility] Family & Internal [address] [address] Luis Powers APNP Diabetes 08/03/2024 Travel 08/02/2024 Scan [facility] INFO SRVCS Scanned, [facility] Lab (SCAN) 07/27/2024 Telephone [facility] & Internal [address] [address] Luis Powers APNP Information 07/18/2024 Scan [facility]CS Scanned, Doc [facility] 07/04/[address] [address] Luis Powers APNP Advice 07/01/2024 Telephone [facility] Family & Internal [address] [address] Luis Powers APNP Information 07/01/2024 Telephone [facility] Multispecialty Care - [facility] [address], [address] [place] [address] Maciej Shafer MD Question 06/29/2024 Telephone [facility] Family & Internal [address] [address] Luis Powers APNP Lab Results 06/27/2024 7:04 AM CDT - 06/27/2024 11:59 PM CDT Hospital Encounter [facility] [address] [place] [address] Luis Powers APNP Discharge Disposition: Home or Self Care (Routine Discharge) 06/27/2024 Travel 06/23/2024 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 Pt requesting new referral for Urology given his hx of kidney stones.) 06/23/2024 Travel 06/17/2024 10:40 AM TIER TRUCK DRIVER Office Visit [facility] - [facility] [address], [address] [place] [address] Maciej Shafer MD Post Operative (Post-op) 06/17/2024 9:49 AM TIER TRUCK DRIVER - 06/17/2024 11:59 PM TIER TRUCK DRIVER Hospital Encounter [facility] [address] [place] [address] Maciej Shafer MD Discharge Disposition: Home or Self Care (Routine Discharge) 06/16/2024 Travel from Last 3 Months Immunizations Immunization Administration [...] Shingrix 11/12/2018,09/10/2017 Tdap (Adacel) 01/03/2022 Zoster (Zostavax) [address] Unt/0.65Ml 06/20/2013 Family History Medical History Relation [...] from your doctor or pharmacy? Sometimes 05/10/2024 [facility] Answer Date Recorded In the past 12 months has e [employer], gas, oil, or water [employer] threatened to shut off services in your [...] Date Recorded Patient Health Questionnaire-2 Score 0 08/03/2024 [facility] [place] of Occupat ional Health - Occupational Stress [...] any time in the past 12 m [facility], were you homeless or living in a group home (including now)? No 05/10/2024 Sex and Gender Information Value Date Recorded Sex Assigned at Male 05/10/2024 11:24 AM TIER TRUCK DRIVER Legal Sex Male 5:39 PM CDT Gender Identity Not on file Sexual Orientation Not on file Last Filed Vital Signs Vital Sign Reading Time Taken Comments Blood Pressure 118/58 08/03/2024 9:23 AM CDT Pulse 71 08/03/2024 9:23 AM CDT Temperature 37 C (98.6 F) 08/03/2024 9:23 AM CDT Respiratory Rate 16 08/03/2024 9:23 AM CDT Oxygen Saturation 97% 08/03/2024 9:23 AM CDT Inhaled Oxygen Concentration - - Weight 78.2 kg (172 lb 4.8 oz) 08/03/2024 9:23 A M CDT Height 182.9 cm (6') 08/03/2024 9:23 AM CDT Body Mass Index 23.37 08/03/2024 9:23 AM CDT Plan of Treatment Upcoming Encounters Date Type Department Care Team (Late st Contact Info) Description 11/04/2024 9:00 AM CDT Office Visit [facility] Family & Internal Medicine - [address] [address] Luis Powers APNP [address] [place] [address] [id number] Health Maintenance Due Date Last Done Comments Kidney Health Evaluation 1940 Annual Medicare Wellness Visit 06/29/2007 RSV Immunization or 60+ Years (1 - 1-dose 75+ series) 2017 COVID-19 Vaccine ( season) 2024 02/17/2024, 01/09/2023, 01/11/2022, Additional history exists Hemoglobin A1C 02/02/2025 08/03/2024, 11/2024, 02/13/2024, Additional history exists Lipid Panel 02/12/2025 02/13/2024, 12/2022, 01/08/2022, Additional history exists Diabetes: Retinopathy Eye Exam 02/21/2026 02/22/2024, 06/29/2023, 07/07/2022, Additional history exists DTaP, Tdap and Td Vaccines (2 - Td or Tdap) 01/04/2032 01/03/2022 Zoster Vaccines Completed 11/12/2018, 08/19, 06/20/2013 Pneumococcal Vaccine: 50+ Years Completed 06/01/2019, 06/20/2013 PHQ-2 (Physician Saffell) Completed 08/03/2024 Meningococcal B Vaccine Aged Out No l [...] perform ADLs independently Lifestyle No Yamel Haney, TECHNOLOGY TRAINERplant director Devices Implanted Type Area Sand Mill Grinder Device Identifier Shelf Expiration Date Model / Serial / Lot Stent Uret 6fr 30cm Pigtl Crv Taper Tip Bldr Mrk - [id number] Implanted:Qty : 1 on 02/12/2021 by Isaac Chahal MD at [facility] Stent Right: Ureter [employer] [id number] 08/04/2023 [id number] / / [id number] K-Wire Implanted:Qty : 1 on 11/09/2020 by Timi Roblero DPM at [facility] Toe Left: Toe [employer] [id number] 07/20/2024 / / [id number] 1 K Wire 0.045 Implanted:Qty : 1 on 07/25/2022 by Timi Roblero DPM at [facility] Wire Right: Toe [employer] [id number] 10/07/2025 / / [id number] 2 Description:RIGHT BIG TOE Explanted Type Area Sand Mill Grinder Device Identifier Shelf Expiration Date Model / Serial / Lot Stent Bard Ages 6fr X 28cm - [id number] Implanted:Qty : 1 on 12/04/2020 by Isaac Chahal MD at [facility] Explanted:Qty : 1 on 12/13/2020 at [facility] Stent Left: Ureter [employer] [id number] 10/31/2024 [id number] / / [id number] Procedures Procedure Name Priority Date/Time Associated Diagnosis Comments OUTSIDE LAB (SCAN ORDER) 08/12/2024 OUTSIDE LAB (SCAN ORDER) 08/12/2024 IMAGE GENERIC 08/12/2024 PROCEDURE GENERIC (SCAN ORDER) 08/12/2024 COLLECT.CAPILLARY (FNGR,HEEL,EAR) Routine 08/03/2024 9:17 AM CDT Type 2 diabetes mellitus with hyperglycemia, without long-term current use of insulin ([facility]) HEMOGLOBIN, GLYCOSYLATED Routine 08/03/2024 Type 2 diabetes mellitus with hyperglycemia, without long-term current use of insulin ([facility]) OUTSIDE LAB (SCAN ORDER) 08/02/2024 OUTSIDE PT/INR (SCAN ORDER) 08/02/2024 OUTSIDE LAB (SCAN ORDER) 08/02/2024 CT ABD+PEL WO CON MARCIO 06/27/2024 7:2 3 AM CDT Flank pain Other microscopic hematuria URINALYSIS AUTO DIP Routine 06/23/[address] HEAD WO CON Routine 06/17/2024 9:59 AM TIER TRUCK DRIVER S/P evacuation of subdural hematoma DIABETIC RETINOPATHY EXAM (NEGATIVE)(SCAN ORDER) Routine 02/22/2024 LIPID PANEL Routine 02/13/2024 2:58 AM CDT from Last 3 Months or Most Recently Relevant to Health Maintenance Results * OUTSIDE LAB (SCAN ORDER) (08/12/2024) Only the most recent of4 resultswithin the time period is included. 08/12/2024 [facility] Scanned SCANNING Final Resu lt * IMAGE GENERIC (08/12/2024) Anatomical Region Laterality Modality Other 08/12/2024 [facility] Scanned SCANNING Final Resu lt * PROCEDURE GENERIC (SCAN ORDER) (08/12/2024) 08/12/2024 [facility] Scanned SCANNING Final Resu lt * HEMOGLOBIN, GLYCOSYLATED (08/03/2024) HGB A1C 7.9 % BRIANNA REED 08/03/2024 Luis Powers APNP LABORATORY Final Resul t [facility] [address] [place] [address], [place] * OUTSIDE PT/INR (SCAN ORDER) (08/02/2024) 08/02/2024 [facility] Scanned SCANNING Final Resu lt * CT ABD+PEL WO CON (06/27/2024 7:23 [...] 8:50 AM Narrative 06/27/2024 9:05 AM CDT [facility] [address] [place] [address] EXAMINATION: CT Abdomen and Pelvis without contrast [...] the liver is partially excluded from the vrmap-bn-uhpk. Liver is otherwise unremarkable. The spleen, pancreas, [...] fracture or destructive bone lesion. Procedure Note [place], Rigoberto Khalil MD - 06/27/2024 [place] [address] EXAMINATION: CT Abdomen and Pelvis without contrast [...] of the liver is partially excludedfrom the ztlxc-yv-gflq. Liver is otherwise unremarkable. The spleen,pancreas, adrenal [...] Colon MD, 06/27/2024 8:50 AM Luis Powers AP CT Final Resul t * (ABNORMAL) URINALYSIS AUTO DIP (06/23/2024) COLOR (U) YELLOW YELLOW [facility] TRANSPARENCY CLEAR CLEAR [facility] GLUCOSE (U) 500 mg/dl(A) NEGATIVE MG/DL [facility] BILIRUBIN (U) NEGATIVE NEGATIVE [facility] MG/DL (U) NEGATIVE NEGATIVE MG/DL [facility] SPECIFIC GRAVITY (U) 1.015 1.001 - 1.035 [facility] BLOOD (U) MODERATE (2+ Hemolyzed, About 50 rbc/uL)(A) NEGATIVE [facility] U PH 5.5 5.0 - 9.0 [facility] PROTEIN (U) NEGATIVE NEGATIVE mg/dL [facility] UROBILINOGEN 0.2 0.2 - 1.0 EU/dL = mg/dL -[facility] NITRITES NEGATIVE NEGATIVE MG/DL [facility] LEUKOCYTES (U) NEGATIVE NEGATIVE MG-SO [facility] URINE SPECIMEN OBTAINED BY CLEAN CATCH PROCEDURE / Unknown 06/23/2024 us Luiskevon Powers DESIREE URINE ORDERABLES Final Resu lt [facility] [address] [place] [address], [place] * CT HEAD WO CON (06/17/2024 9:59 AM TIER TRUCK DRIVER) Anatomical Region Laterality Modality Head Computed Tomogra phy 06/19/2024 2:31 PM TIER TRUCK DRIVER Impressions 06/19/2024 2:35 PM TIER TRUCK DRIVER IMPRESSION: 1. Small late subacute upper right subdural hematoma measuring up to 0.5 cm in width along the right frontal convexity, decreased in size compared to the prior CT. No interval hemorrhage. 2. 0.2 cm of leftward midline shift shift, unchanged. Referred By: MACIEJ SHAFER Interpreted By: Raimundo De Anda MD, 06/19/2024 2:31 PM Narrative 06/19/2024 2:35 PM TIER TRUCK DRIVER [address] [address] EXAMINATION:Head CT without contrast 06/17/2024 INDICATION:Follow-up subdural [...] Note Raimundo De Anda MD - 06/19/[address] [address] EXAMINATION:Head CT without contrast 06/17/2024 INDICATION:Follow-up subdural [...] Shafer MD CT Final Resul t * DIABETIC RETINOPATHY EXAM (NEGATIVE) (02/22/2024) [facility] Scanned SCANNING Final Resu lt [facility] ONBASE * LIPID PANEL (02/13/2024 2:58 AM CDT) CHOLESTEROL 120 MG/DL 02/13/2024 4:[address] [facility] Comment:DESIRABLE: <200 TRIGLYCERIDES 99 MG/DL 02/13/2024 4:[address] [facility] Comment:<150 NORMAL HDL 58 >39 MG/DL 02/13/2024 4:[address] [facility] LDL (CALCULATED) 42 MG/DL 02/13/20 4:[address] [facility] Comment:<100 OPTIMAL VLDL CALCULATION 20 MG/DL 02/13/20 4:[address] [facility] Comment:REFERENCE RANGE NOT ESTABLISHED CHOL/HDL RATIO 2.1 02/13/2024 4:[address] [facility] Comment:REFERENCE RANGE NOT ESTABLISHED LDL/HDL 0.7 02/13/2024 4:[address] [facility] Comment:REFERENCE RANGE NOT ESTABLISHED NON HDL CHOLESTEROL 62 MG/DL 02/13/2024 4:[address] [facility] Comment:REFERENCE RANGE NOT ESTABLISHED 02/13/2024 2:58 AM CDT Robert Bernardo MD LABORATORY Final Res ult [facility] [address] [place] [address], [id number] from Last 3 Months or Most Recently Relevant to Health Maintenance Insurance MEDICARE HUMANA Advance Directives Documents on File Type Date Recorded Patient Dress Draper Expl anation Advance Directives and Livin g [...] 9:25 AM 11/09/2020 12:34 PM Care Teams Almond Cutting Machine Tender Relationship Specialty Start Date End Date Luis oPwers APNP [address] [place] [id number] PCP - General FAMILY PRACTICE 03/18/18
--- OUTSIDE RECORDS SUMMARY | 2024-09-01 11:37 | XMS_ITS | Patient Health Record ---
Author Organization [facility] Address [address] [facility] [address] [place] [address] Care Team Providers Care Director Chemistry Name Role Phone JOSEPH MAN Unavailable [phone] Reason For Referral No Information Plan Of Treatment No Information Insurance Providers Payer Name Payer Address Payer Phone Subscriber Number Group Number Insured Name Patient Relationship to Insured Coverage Start Date Coverage End Date [place] [address] [place], [place] [id number] Carroll Reyna Self - patient is the insured 8 FOR LIFE [address] [place], [place] [id number] Carroll Reyna Self - patient is the insured 5
== END 2024-09-01 11:32 | disposition home or self-care (01) ==
PROVIDERS: PCP Registered Nurse; Visit Provider Urology
DX: N20.0 Calculus of kidney (principal)
CPT/HCPCS: 74018

== ENCOUNTER 2024-09-05 09:28 | Outpatient (CLI) | payer MEDICARE, OTHER, SELFPAY ==
--- OUTSIDE RECORDS SUMMARY | 2024-09-05 09:58 | XMS_ITS | Patient Health Record ---
Author Organization [facility] Address [address] [facility] [address] [place] [address] Care Team Providers Care Server Security Administrator Name Role Phone JOSEPH MAN Unavailable [phone] Reason For Referral No Information Plan Of Treatment No Information Insurance Providers Payer Name Payer Address Payer Phone Subscriber Number Group Number Insured Name Patient Relationship to Insured Coverage Start Date Coverage End Date [place] [address] [place], [place] [id number] Carroll Reyna Self - patient is the insured 8 FOR LIFE [address] [place], [place] [id number] Carroll Reyna Self - patient is the insured 5
--- OUTSIDE RECORDS SUMMARY | 2024-09-05 09:58 | XMS_ITS | Referral Summary ---
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
--- OUTSIDE RECORDS SUMMARY | 2024-09-05 09:58 | XMS_ITS | Clinical Summary ---
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
[2024-09-05 10:13] LABS: INR 0.9; Prothrombin Time 12.9 Seconds (11.1-14.7)
[2024-09-05 10:14] LABS: Partial Thromboplastin Time 27.9 Seconds (22.3-36.8)
== END 2024-09-05 09:29 | disposition home or self-care (01) ==
LOC: ANHSURGERY 09:35
PROVIDERS: PCP Registered Nurse; Visit Provider Urology
DX: Z01.818 Encounter for other preprocedural examination (principal); N20.0 Calculus of kidney
CPT/HCPCS: 36415; 85610; 85730; 87086

== ENCOUNTER 2024-09-09 00:47 | Day surgery (SDC) | payer MEDICARE, OTHER, SELFPAY ==
--- NOTE | 2024-09-02 08:45 | PC.NURSE ---
Report to the Outpatient Waiting Room, entrance under the green pavilion located off [facility], at time _9:30 AM on date __09/09/24 . Planned Procedure Time: ___11:30 AM .? Time changes happen often and if your time is changed the preop area will call you the afternoon before. - You and your visitor will be asked to self-screen and do not enter if you have any COVID symptoms. Please call surgeon if you need to reschedule. - A mask is optional within the hospital at this time. Patients may have clear liquids (water, carbonated beverages, clear teas, apple juice) until 3 hours prior to surgery with a maximum of 20 ounces. - No food from midnight until time of surgery and no smoking, or chewing tobacco (or any form of nicotine). No chewing gum, candy or mints. - Take only the following medications with a SIP of water on the morning of surgery: NONE DO NOT STOP ANY OF YOUR OTHER PRESCRIPTION MEDICATIONS PRIOR TO SURGERY EXCEPT THE FOLLOWING Hold all vitamins and supplements for 3 days per anesthesiologist.LAST DOSE 09/05/24 Medications to discontinue per physician NO ASPIRIN_7 DAYS PRE OP PER DR AVALOS Date to take last dose 09/01/24 Please no make-up, nail hungarian, hairspray, perfume, deodorant, or body powder the day of surgery.? No jewelry (including any body piercings) or valuables the day of surgery, leave them at home.? Please take a shower or bath the night before, or the morning of, surgery with an antibacterial soap.? Wear comfortable, loose fitting clothing.? Children are encouraged to wear pajamas. - Jewelry must be removed prior to entering the operating room.? Rings and piercings that are not removed may be cut off. - The hospital will not accept responsibility for valuables.? - Please leave all valuables, including medications, at home the day of surgery. If you are going home after surgery, a licensed commercial driver's license driver must drive you home.? - NO public transportation without another adult if you receive anesthesia. - We recommend that an adult stay with you for 24 hours following discharge. - We also recommend that you do not drive, make important decision, drink alcoholic beverages, or take any drugs that were not prescribed by your health care provider for at least 24 hours after your discharge time. For Pediatric surgeries, we recommend two adults accompany the child home. Follow any additional instructions given to you from your surgeon. Telephone instructions given to __PATIENT and asked if any additional questions and then verbalized understanding. Patient advised to call surgeon office or pre surgery nurse liaison [phone] if any additional questions.
[2024-09-02 09:15] VITALS: BMI 22.1
[2024-09-09] VITALS (9 sets, daily range): BP systolic 120–148; BP diastolic 58–85; PULSE 55–68; RESP 13–16; TEMP 36.1–36.6; O2SAT 98–100
--- NOTE | ~2024-09-09 | XR_ITS ---
XR abdomen/kub 1V 09/09/2024 09:25 Indication: Preop lithotripsy therapy Procedure: KUB Comparison: 09/01/2024 Findings: There is a right internal ureteral stent in expected position. There are multiple bilateral renal stones. No definite stones are seen in the expected course of the ureters. Bowel gas pattern n onobstructive with large amount of retained fecal material in the colon. Moderate lumbar spondylosis. Impression: 1: Bilateral nephrolithiasis. Reviewed, dictated and finalized at location [] Impression: 1: Bilateral nephrolithiasis.
--- OUTSIDE RECORDS SUMMARY | 2024-09-09 00:52 | XMS_ITS | Referral Summary ---
Author Organization [facility] [address] [place] Address [address] 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
--- OUTSIDE RECORDS SUMMARY | 2024-09-09 00:52 | XMS_ITS | Clinical Summary ---
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
--- NOTE | 2024-09-09 09:33 | WPDHPUPDATE1 ---
History and Physical Update Update Date/Time: 09/09/24 09:33 History and Physical has been reviewed, including an updated exam of the patient. There are NO changes in the patient's condition. Risks, benefits, and alternatives have been discussed and questions answered. Patient agrees to proceed with procedure.
[2024-09-09] MEDS: LACTATED RINGERS 1,000 ML 30 ML IV CONT (10:00)
[2024-09-09 10:08] LABS: Glucose Point of Care 149 mg/dl (65-105)
--- NOTE | 2024-09-09 10:35 | P.PNAN_ITS ---
Anes - Initial Pre Proc Eval Procedure: Operation Date: 09/09/24 11:30 Proposed Procedures p Right Extracorporeal Shock Wave Lithotripsy - Will Fernandez MD Date/Time: 09/09/24 10:35 Surgeon: Will Fernandez MD Pre Op Diagnosis: right kidney stone Patient Data Age: 84 Gender: M Height: 1.83 m Weight: 73.2 kg Allergies Allergy/AdvReac Type Severity Reaction Status Date / Time No Known Allergies Allergy Verified 09/02/24 08:48 Home Medications ?Medication ?Instructions ?Recorded ?Confirmed ?Type acetaminophen 325 mg tablet 325 mg PO ONCE PRN pain 07/27/24 09/02/24 History (Aminofen) aspirin-caffeine 500 mg-32.5 mg 1 tablet PO DIRECTED PRN pain 07/27/24 09/02/24 History tablet (Back and Body Pain Reliever) hccjnmrqnu-mgbgspprunjtq-ufujxmla 1 tablet PO Q6H PRN headache 07/27/24 09/02/24 History 50 mg-325 mg-40 mg tablet calcium carbonate (Calcium 600) 600 mg PO DAILY 07/27/24 09/02/24 History cyclobenzaprine 5 mg tablet 5 mg PO Q8H PRN muscle spasm 07/27/24 09/02/24 History diphenhydramine HCl 50 mg tablet 50 mg PO HS 07/27/24 09/02/24 History (Benadryl Allergy) hydrochlorothiazide 25 mg tablet 25 mg PO DAILY 07/27/24 09/02/24 History lisinopril 10 mg tablet 10 mg PO DAILY 07/27/24 09/02/24 History metformin 500 mg tablet 1,000 mg PO BID 07/27/24 09/02/24 History wqpcojqo-dit-qz9-dha 133 mg-epa 1 cap PO DIRECTED PRN dry eye 07/27/24 09/02/24 History 167 bw-pyhq-kfyx-lactoferrin capsule (Dry Eye Formula) multivitamin (Daily Multi-Vitamin 1 tablet PO DAILY 07/27/24 09/02/24 History tablet) omega 8-kpr-sss-fish oil 1,200 mg 1 cap PO DAILY 07/27/24 09/02/24 History (144 mg-216 mg) capsule (Fish Oil) simvastatin 20 mg tablet 20 mg PO QPM 07/27/24 09/02/24 History tamsulosin 0.4 mg capsule (Flomax) 0.4 mg PO HS 07/27/24 09/02/24 History vitamin B complex 1 tablet PO DAILY 07/27/24 09/02/24 History oxybutynin chloride 5 mg tablet 5 mg PO BID PRN bladder spasms #30 08/12/24 09/02/24 Rx tabs sulfamethoxazole 800 1 tablet PO Q12H #6 tabs 08/12/24 09/02/24 Rx mg-trimethoprim 160 mg tablet (Bactrim DS) tramadol 50 mg tablet 50 mg PO Q6H PRN pain #20 tabs 08/12/24 09/02/24 Rx oxybutynin chloride 15 mg 15 mg PO DAILY 09/02/24 09/02/24 History tablet,extended release 24 hr Laboratory Tests 09/09/24 10:04 POC Capillary Glucose 149 H mg/dl (65-105) Patient hx anesthesia problems: none Family hx anesthesia problems: none Results Review: All pre-operative results and documents have been reviewed as part of the pre- operative evaluation. [facility] Past Medical History Medical History Hyperlipidemia Diabetes HTN (hypertension) Surgical History Surgical History History of justice hole surgery 06/[address] [facility] Social History Social History Smoking packs per day: 1 Smoking cigarettes per day: 20.0 Years smoked: 4 Smoking pack-years: 4.00 Smoking status: Former smoker Tobacco type: cigarettes Smoking end date: 04/20/74 Alcohol intake: current Drinks per week: 1 Alcohol use details: 1 a week Substance use: never Living arrangements: alone Spiritual care concerns: No Anes - Eval Final PreProcedure Day of Procedure 09/09/24 10:35 Patient weight: normal Heart: regular rate and rhythm Lungs: clear to auscultation Airway: Mallampati scale class II Neurological: alert and oriented Last oral intake: >/= 8 hours ASA classification: III Emergent: no Anesthetic plan: proceed Anesthesia type and monitoring: general LMA and standard monitoring Results Review: All pre-operative results and documents have been reviewed as part of the pre- operative evaluation. Informed Consent: The patient's anesthetic plan and its attendant risks and benefits were discussed with the patient/family/POA. Questions were solicited and answers provided to the satisfaction of the patient/family/POA.
[2024-09-09] MEDS: ceFAZolin 2 GM/D5W 50 ML 2 GM/50 ML BAG IVPB (10:43)
--- NOTE | 2024-09-09 11:23 | W.PM.PROC2 ---
Procedure Note - Detailed Date of Procedure 09/09/24 Pre-op Diagnosis right kidney stone Post-op Diagnosis Same Procedure Performed Lithotripsy of right renal calculus Surgeon Will Fernandez MD Anesthesia General Description of Procedure Patient is taken to the operative suite correctly identified. Once anesthesia was obtained the stone was localized in both planes. Two thousand five hundred shocks were given to collection of stones in the lower pole. There appeared to be good fragmentation. Patient is taken recovery stable condition. He will follow-up in 7-10 days with KUB. This completes dictation. Please send a copy of op note to my office Estimated Blood Loss 0 Drains No Packing No Pathology None sent Complications No immediate complications Condition Stable Disposition PACU
[2024-09-09 11:48] LABS: Glucose Point of Care 144 mg/dl (65-105)
== END 2024-09-09 13:26 | disposition home or self-care (01) ==
PROVIDERS: PCP Registered Nurse; Visit Provider Urology
PROC: (CPT 50590; principal; 2024-09-09 11:30)
DX: N20.0 Calculus of kidney (principal); I10 Essential (primary) hypertension; E11.9 Type 2 diabetes mellitus without complications; E78.5 Hyperlipidemia, unspecified; Z79.82 Long term (current) use of aspirin; Z79.891 Long term (current) use of opiate analgesic; Z79.84 Long term (current) use of oral hypoglycemic drugs; Z98.890 Other specified postprocedural states; Z87.891 Personal history of nicotine dependence
CPT/HCPCS: 50590; 74018; 82948; J0690; J1100; J2003; J2405; J2704; J7120

== ENCOUNTER 2024-09-22 13:42 | Outpatient (CLI) | payer MEDICARE, OTHER, SELFPAY ==
--- NOTE | ~2024-09-22 | XR_ITS ---
XR abdomen/kub 1V 09/22/2024 14:07 Indication: Renal stone Procedure: KUB Comparison: 09/09/2024 Findings: There is right internal ureteral stent in expected position. There are multiple bilateral r enal stones. Bowel gas pattern nonobstructive. Moderate colonic fecal loading. Lung bases unremarkabl e. Impression: 1: Bilateral nephrolithiasis. Reviewed, dictated and finalized at location A. Impression: 1: Bilateral nephrolithiasis.
--- OUTSIDE RECORDS SUMMARY | 2024-09-22 14:24 | XMS_ITS | Clinical Summary ---
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
--- OUTSIDE RECORDS SUMMARY | 2024-09-22 14:24 | XMS_ITS | Patient Health Record ---
Author Organization [facility] Address [address] [facility] [address] [place] [address] Care Team Providers Care Calibrator Barometers Name Role Phone JOSEPH MAN Unavailable [phone] Reason For Referral No Information Plan Of Treatment No Information Insurance Providers Payer Name Payer Address Payer Phone Subscriber Number Group Number Insured Name Patient Relationship to Insured Coverage Start Date Coverage End Date [place] [address] [place], [place] [id number] Carroll Reyna Self - patient is the insured 8 FOR LIFE [address] [place], [place] [id number] Carroll Reyna Self - patient is the insured 5
--- OUTSIDE RECORDS SUMMARY | 2024-09-22 14:24 | XMS_ITS | Referral Summary ---
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
== END 2024-09-22 13:43 | disposition home or self-care (01) ==
PROVIDERS: PCP Registered Nurse; Visit Provider Urology
DX: N20.0 Calculus of kidney (principal)
CPT/HCPCS: 74018

== ENCOUNTER 2024-10-25 10:42 | Outpatient (CLI) | payer MEDICARE, OTHER, SELFPAY ==
--- NOTE | ~2024-10-25 | XR_ITS ---
XR abdomen/kub 1V Ordering provider: Will Fernandez MD History: . CALCIUM KIDNEY STONE . Comparison: None. FINDINGS: BOWEL: Nonobstructive bowel gas pattern. ORGANOMEGALY: None. SIGNIFICANT PATHOLOGIC CALCIFICATIONS: Bilateral kidney stones with the largest in the left kidney lo wer pole measuringr 8 mm.. OTHER: No free air is seen under the diaphragm. IMPRESSION: NO ACUTE ABDOMINAL FINDINGS. Bilateral kidney stones. Reviewed, dictated and finalized at location A.
--- OUTSIDE RECORDS SUMMARY | 2024-10-25 10:51 | XMS_ITS | Clinical Summary ---
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
--- OUTSIDE RECORDS SUMMARY | 2024-10-25 10:51 | XMS_ITS | Referral Summary ---
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
--- OUTSIDE RECORDS SUMMARY | 2024-10-25 10:51 | XMS_ITS | Patient Health Record ---
Author Organization [facility] Address [address] [facility] [address] [place] [address] Care Team Providers Care Straw Hat Presser Name Role Phone JOSEPH MAN Unavailable [phone] Reason For Referral No Information Plan Of Treatment No Information Insurance Providers Payer Name Payer Address Payer Phone Subscriber Number Group Number Insured Name Patient Relationship to Insured Coverage Start Date Coverage End Date [place] [address] [place], [place] [id number] Carroll Reyna Self - patient is the insured 8 FOR LIFE [address] [place], [place] [id number] Carroll Reyna Self - patient is the insured 5
--- OUTSIDE RECORDS SUMMARY | 2024-10-25 10:51 | XMS_ITS | Clinical Summary ---
Author Organization [facility] Address [address] [place] [address] Care Team Providers Care Briar Shop Supervisor Name Role Phone Gena Powers Primary Care Provider Allergies No known active allergies Medications B Complex Cap capsule Take 1 capsule by mouth daily. Active Multiple Vitamins-Mineral s (ICAPS AREDS 2 OR) Take 1 tablet by mouth daily. Active Acetaminophen (TYLENOL ARTHRITIS PAIN OR) Take by mouth daily. Active CYSTEAMINE HCL OP Eye drops Active calcium-vitamin D (OSCAL) 250-3.125 MG-MCG tablet Take 1 tablet by mouth daily. Active Cholecalciferol (VITAMIN D-3 OR) Act sarahi butalbital-aceta minophen-caffein e (ESGIC) 50-325-40 MG tabletIndication s:Nonintractable episodic headache, unspecified headache type Take 1-2 tabs every 8 hours PRN for headache 60 tablet 5 Active hydroCHLOROthiaz randee (HYDRODIURIL) 25 MG tabletIndication s:Essential hypertension Take 1 tablet (25 mg total) by mouth daily. 90 tablet 2 5 Active lisinopril (PRINIVIL) 10 MG tabletIndication s:Essential hypertension Take 1 tablet (10 mg total) by mouth daily. 90 tablet 5 Active metFORMIN ER (GLUCOPHAGE-XR) 500 MG 24 hr tabletIndication s:Type 2 diabetes mellitus with hyperglycemia, without long-term current use of insulin (CMS/HCC HHS/HCC) TAKE 2 TABLETS TWICE DAILY 360 tablet 1 5 01/12/20 25 Active simvastatin (ZOCOR) 20 MG tabletIndication s:Hypercholester olemia Take 1 tablet (20 mg total) by mouth nightly at bedtime. at bedtime 90 tablet 3 5 Active tamsulosin (FLOMAX) 0.4 MG CapIndications:B ilateral renal stones Take 1 capsule (0.4 mg total) by mouth daily. 90 capsule 1 5 Active fluticasone propionate (FLONASE) 50 MCG/ACT nasal sprayIndications :Seasonal allergic rhinitis, unspecified trigger 2 sprays by Each Nostril route daily. 48 g 1 5 Active hydroCHLOROthiaz randee (HYDRODIURIL) 25 MG tabletIndication s:Essential hypertension take 1 tablet by mouth daily. 90 tablet 2 4 10/13/19 25 Discontinu ed(Reorder ) simvastatin (ZOCOR) 20 MG tabletIndication s:Hypercholester olemia Take 1 tablet (20 mg total) by mouth nightly at bedtime. at bedtime 90 tablet 3 4 10/13/19 25 Discontinu ed(Reorder ) tamsulosin (FLOMAX) 0.4 MG CapIndications:B ilateral renal stones Take 1 capsule (0.4 mg total) by mouth daily. 90 capsule 1 5 10/13/19 Discontinu ed(Reorder ) fluticasone propionate (FLONASE) 50 MCG/ACT nasal sprayIndications :Seasonal allergic rhinitis, unspecified trigger INHALE 2 SPRAYS INTO EACH NOSTRIL ONCE DAILY 48 g 1 5 10/18/19 Discontinu ed(Reorder ) lisinopril (PRINIVIL) 10 MG tabletIndication s:Essential hypertension Take 1 tablet (10 mg total) by mouth daily. 90 tablet 5 10/13/19 25 Discontinu ed(Reorder ) metFORMIN ER (GLUCOPHAGE-XR) 500 MG 24 hr tabletIndication s:Type 2 diabetes mellitus with hyperglycemia, without long-term current use of insulin ([facility]) TAKE 2 TABLETS TWICE DAILY 360 tablet 1 5 10/13/19 Discontinu ed(Reorder ) Active Problems Problem Noted [...] complication, without long-term current use of insulin ([facility]) Resolved Problems Problem Noted Date Diagnosed Date Resolved Date Chronic kidney disease, stage III (moderate) 2 11/20/2022 Encounter for prostate cancer screening 05/11/2015 12/30/2019 Encounter for preventive health examination 01/27/2012 12/30/2019 Encounters Date Type Department Care Team Description 10/17/2024 Telephone [facility] Family & Internal [address] [phone] Gena Powers APNP Medication Request 10/12/2024 Telephone [facility] Internal [address] [phone] Gena Powers APNP Information 09/22/2024 Scan [facility] Scanned, [facility] Image (SCAN) 09/09/2024 Scan [facility] Scanned, [facility] Lab (SCAN); Image (SCAN); Procedure (SCAN) 09/05/2024 Scan [facility] Scanned, [facility] Lab (SCAN) 09/01/2024 Scan [facility] Scanned, [facility] Image (SCAN) 08/22/2024 Scan [facility] Scanned, [facility] Dilated Eye Exam (SCAN) 08/12/2024 Scan [facility] Scanned, [facility] Image (SCAN); Lab (SCAN); Procedure (SCAN) 08/03/2024 9:20 AM CDT Office Visit [facility] & Internal [address] [phone] Gena Powers, JAQUANNP Diabetes 08/03/2024 Travel 08/02/2024 Scan [facility] Scanned, [facility] Lab (SCAN) 07/27/2024 Telephone [facility] Internal [address] [phone] Gena Powers, JAQUANNP Information from Last 3 Months Immunizations Immunization Administration [...] Shingrix 11/12/2018,09/10/2017 Tdap (Adacel) 01/03/2022 Zoster (Zostavax) [address]2625 Unt/0.65Ml 06/20/2013 Family History Medical History Relation [...] from your doctor or pharmacy? Sometimes 05/10/2024 [facility] Utilities Answer Date Recorded In the past [address] [facility] Diarize, gas, oil, or water [employer]beforeI[employer] threatened to shut off services in your [...] Recorded Patient Health Questionnaire-2 Score 0 08/03/2024 [facility] [employer] - Occupational Stress [...] any time in the past 12 m [facility], were you homeless or living in a group home (including now)? No 05/10/2024 Sex and Gender Information Value Date Recorded Sex Assigned at Male 05/10/2024 11:24 AM [employer] Legal Sex Male 5:39 PM CDT Gender [...] Description 11/04/2024 9:00 AM CDT Office Visit [facility] Family & Internal Medicine [address] [phone] Gena Powers APNP [address] [place] [id number] Health Maintenance Due Date Last Done Comments Kidney Health Evaluation 1940 Annual Medicare Wellness Visit 06/29/2007 RSV Immunization or 60+ Years (1 - 1-dose 75+ series) 2017 COVID-19 Vaccine ( season) 2024 02/17/2024, 01/09/2023, 01/11/2022, Additional history exists Hemoglobin A1C 02/02/2025 08/03/2024, 11/2024, 02/13/2024, Additional history exists Lipid Panel 02/12/2025 02/13/2024, 12/2022, 01/08/2022, Additional history exists Diabetes: Retinopathy Eye Exam 08/22/2026 08/22/2024, 02/22/2024, 06/29/2023, Additional history exists DTaP, Tdap and Td Vaccines (2 - Td or Tdap) 01/04/2032 01/03/2022 Zoster Vaccines Completed 11/12/2018, 08/19, 06/20/2013 Pneumococcal Vaccine: 50+ Years Completed 06/01/2019, 06/20/2013 PHQ-2 (Physician Inaja) Completed 08/03/2024 Meningococcal B Vaccine Aged Out [...] perform ADLs independently Lifestyle No Yamel Haney, TECHNICAL SPECIALIST CYTOLOGYphysicist light and optics Devices Implanted Type Area Milking Machine Technician Device Identifier Shelf Expiration Date Model / Serial / Lot Stent Uret 6fr 30cm Pigtl Crv Taper Tip Bldr Mrk - [id number] Implanted:Qty : 1 on 02/12/2021 by Isaac Chahal MD at [facility] Stent Right: Ureter [employer] [id number] 08/04/2023 [id number] / / [id number] K-Wire Implanted:Qty : 1 on 11/09/2020 by Timi Roblero DPM at [facility] Toe Left: Toe [employer] [id number] 07/20/2024 / / [id number] K Wire 0.045 Implanted:Qty : 1 on 07/25/2022 by Timi Roblero DPM at [facility] Wire Right: Toe [employer] [id number] 10/07/2025 / / [id number] 2 Description:RIGHT BIG TOE Explanted Type Area Milking Machine Technician Device Identifier Shelf Expiration Date Model / Serial / Lot Stent [employer] 6fr X 28cm - [id number] Implanted:Qty : 1 on 12/04/2020 by Isaac Chahal MD at [facility] Explanted:Qty : 1 on 12/13/2020 at [facility] Stent Left: Ureter [employer] [id number] 10/31/2024 [id number] / / [id number] Procedures Procedure Name Priority Date/Time Associated Diagnosis Comments IMAGE GENERIC 09/22/2024 OUTSIDE LAB (SCAN ORDER) 09/09/2024 OUTSIDE LAB (SCAN ORDER) 09/09/2024 IMAGE GENERIC 09/09/2024 PROCEDURE GENERIC (SCAN ORDER) 09/09/2024 OUTSIDE PT/INR (SCAN ORDER) 09/05/2024 OUTSIDE LAB (SCAN ORDER) 09/05/2024 IMAGE GENERIC 09/01/2024 DIABETIC RETINOPATHY EXAM (NEGATIVE)(SCAN ORDER) Routine 08/22/2024 OUTSIDE LAB (SCAN ORDER) 08/12/2024 OUTSIDE LAB (SCAN ORDER) 08/12/2024 IMAGE GENERIC 08/12/2024 PROCEDURE GENERIC (SCAN ORDER) 08/12/2024 COLLECT.CAPILLARY (FNGR,HEEL,EAR) Routine 08/03/2024 9:17 AM CDT Type 2 diabetes mellitus with hyperglycemia, without long-term current use of insulin ([facility]) HEMOGLOBIN, GLYCOSYLATED Routine 08/03/2024 Type 2 diabetes mellitus with hyperglycemia, without long-term current use of insulin ([facility]) OUTSIDE LAB (SCAN ORDER) 08/02/2024 OUTSIDE PT/INR (SCAN ORDER) 08/02/2024 OUTSIDE LAB (SCAN ORDER) 08/02/2024 LIPID PANEL Routine 02/13/2024 2:58 AM CDT from Last 3 Months or Most Recently Relevant to Health Maintenance Results * IMAGE GENERIC (09/22/2024) Only the most recent of4 resultswithin the time period is included. Anatomical Region Laterality Modality Other 09/22/2024 [facility] Scanned SCANNING Final Resu lt * OUTSIDE LAB (SCAN ORDER) (09/09/2024) Only the most recent of7 resultswithin the time period is included. 09/09/2024 Result [facility] Scanned SCANNING Final Resu lt * PROCEDURE GENERIC (SCAN ORDER) (09/09/2024) 09/09/2024 Result [facility] Scanned SCANNING Final Resu lt * OUTSIDE PT/INR (SCAN ORDER) (09/05/2024) Only the most recent of2 resultswithin the time period is included. 09/05/2024 us [facility] Scanned SCANNING Final Resu lt * DIABETIC RETINOPATHY EXAM (NEGATIVE) (08/22/2024) Result [facility] Scanned SCANNING Final Resu lt [facility] ON[facility] * PROCEDURE GENERIC (SCAN ORDER) (08/12/2024) 08/12/2024 Result [facility] Scanned SCANNING Final Resu lt * HEMOGLOBIN, GLYCOSYLATED (08/03/2024) HGB A1C 7.9 % [facility] 08/03/2024 Result [facility] Gena [facility] LABORATORY Final Resul t Performing Organization Address City/[facility]/ZIP Co de Phone Number [facility] [address] [place] [address], [place] * LIPID PANEL (02/13/2024 2:58 AM CDT) CHOLESTEROL 120 MG/DL 02/13/2024 4:18 AM CDT [facility] Comment:DESIRABLE: <200 TRIGLYCERIDES 99 MG/DL 02/13/2024 4:18 AM CDT [facility] Comment:<150 NORMAL HDL 58 >39 MG/DL 02/13/2024 4:18 AM CDT [facility] LDL (CALCULATED) 42 MG/DL 02/13/20 4:18 AM CDT [facility] Comment:<100 OPTIMAL VLDL CALCULATION 20 MG/DL 02/13/20 4:18 AM CDT [facility] Comment:REFERENCE RANGE NOT ESTABLISHED CHOL/HDL RATIO 2.1 02/13/2024 4:18 AM CDT [facility] Comment:REFERENCE RANGE NOT ESTABLISHED LDL/HDL 0.7 02/13/2024 4:18 AM CDT [facility] Comment:REFERENCE RANGE NOT ESTABLISHED NON HDL CHOLESTEROL 62 MG/DL 02/13/2024 4:18 AM CDT [facility] Comment:REFERENCE RANGE NOT ESTABLISHED 02/13/2024 2:58 AM CDT Robert Bernardo MD LABORATORY Final Res ult [facility] [address] [place] [address], [id number] from Last 3 Months or Most Recently Relevant to Health Maintenance Insurance MEDICARE [facility] Advance Directives Documents on File Type Date Recorded Patient Retail Director Expl anation Advance Directives and Livin g [...] 9:25 AM 11/09/2020 12:34 PM Care Teams Briar Shop Supervisor Relationship Specialty Start Date End Date Gena Powers APNP [address] [place] [id number] PCP - General FAMILY PRACTICE 03/18/18
== END 2024-10-25 10:43 | disposition home or self-care (01) ==
PROVIDERS: PCP Registered Nurse; Visit Provider Urology
DX: N20.0 Calculus of kidney (principal)
CPT/HCPCS: 74018